=== PATIENT | female | born 1945 | race Caucasian/White ===

== ENCOUNTER 2017-05-01 14:59 | Inpatient (IN) ==
[2017-05-01] MEDS: LR 1,000 ML IV SCH (16:44)
[2017-05-01 17:47] LABS: INR 1.2; PROTIME 12.7 Seconds (9.2-11.7)
[2017-05-01 18:05] LABS: AMYLASE 40 U/L (20-200); LIPASE 23 U/L (13-60)
[2017-05-01 18:10] LABS: ALBUMIN 3.3 g/dL (3.5-5.0); CALCIUM 9.3 mg/dL (8.8-10.2); TOTAL BILIRUBIN 1.75 mg/dL (0.20-1.00); TOTAL PROTEIN 6.4 g/dL (6.3-8.3)
[2017-05-01 18:18] LABS: FREE T4 1.45 ng/dL (0.93-1.70)
[2017-05-01 18:20] LABS: HEMATOCRIT 33.1 % (37.0-47.0); HEMOGLOBIN 11.3 g/dL (12.0-16.0); MCH 32.6 PG (27-31); MCHC 34.1 g/dL (33-37); MCV 95.4 FL (81-99); MPV 10.9 FL (7.4-10.4); RBC 3.47 XMIL (4.2-5.4)
--- NOTE | 2017-05-01 18:23 | CONSULTATION ---
DATE OF CONSULTATION: 05/01/2017 HISTORY: She is from [facility]. I think she was followed there by Dr. Tong Valentine and Micah Ramos. She usually walks the [place] without assistance and is very active and requires very little assistance. Two weeks ago they noted she was staying in bed and seemed to be getting weaker to the point now where she cannot walk without assistance. They noted she has had for 4 or 5 falls in the last couple weeks. It seems to be when she is turning right. She claims that her balance is poor and she is bumping into domingo. She started having some abdominal pain. She pointed to her lower abdomen, but apparently she has been complaining of upper abdominal pain as well. Dr. Allison had evaluated her. I think he did an EGD by her report. She had Louise esophagitis and an old ulcer in the stomach. She feels like she has had chills every other day. There is no recorded fever. She denies any gross hematuria, hematochezia or burning, but she has had poor appetite and at times, apparently she has had nausea although she denies any at the present time. She had a mild elevation of transaminases. Apparently an ultrasound showed quite a few gallstones. PAST MEDICAL HISTORY: 1. One bipolar disorder for which she is on lithium and no recent change in medications. 2. Hypertension. 3. High cholesterol. 4. Primary hypothyroidism currently on Synthroid. 5. Osteoarthritis. 6. Had an EGD per Dr. Allison. Apparently had a fungal esophagitis and an old gastric ulcer. 7. History of pernicious anemia. Apparently, she gets B12 shots. 8. Lower back pain, which I think has been chronic, but she has had several falls and apparently seems to be worse since that time. 9. She has a history of depression. 10. History of osteoporosis. 11. History of anxiety disorder. 12. History of chronic obstructive pulmonary disease. 13. Unspecified lumbago with sciatica. 14. She has a long history of gastroesophageal reflux disease. PAST SURGICAL HISTORY: 1. She had a colon polyp removed. 2. delivery. 3. Status post hysterectomy. 4. They have done nasal septal surgery to straighten. 5. Bilateral total hip surgery. She has had some radicular pain before from lumbosacral region. No CVA. SOCIAL HISTORY: She smokes 1 cigarette a day. The daughter states that she usually gets out of bed to smoke that cigarette and she has not been doing that the last couple of weeks. No recent history of ethanol. 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 She lives at [facility]. Daughter very attentive. She lives in [place]. FAMILY HISTORY: Did not report a history of coronary artery disease or diabetes or any pertinent medical issues. REVIEW OF SYSTEMS: She claims she lost 15 pounds in 4 weeks. Daughter feels like she has lost 7 or 8 in a couple weeks, the last 2 weeks. She has no appetite. Not eating much at all. She denies any trouble with the food going down or swallowing. HEENT: No change in hearing or visual acuity. She does have a history of hypothyroidism. She denies any neck tenderness or swelling. Musculoskeletal: Lower back pain. She complains of when she turns to the right she has seems to have poor balance, but in general poor balance, ataxia and weakness. She fell 4 or 5 times since Monday. This is on Monday. GI and : The abdominal pain as mentioned. Apparently it was high. She pointed to the epigastrium, but she is complaining of lower abdominal pain. Feels like it is more gas and pressure at this time. The history is difficult because she admits she does not remember and is having a hard time remembering even recent events. Skin: No complaints of rashes. Endocrinologic and hematologic: History of hypothyroidism. Waiting on her medication list. She has had some radicular pain before from her lumbosacral region. PHYSICAL EXAMINATION: Vital signs: Temp 98 degrees, pulse 90, respirations 16, blood pressure 112/54. Weight is 129 pounds, height 5 feet 5 inches. O2 saturation 98%. She is awake and alert. She is pleasant. She reports she is having trouble with her memory, her particular recent memory the last couple weeks. Her daughter did state she seems to be more confused and she is having hallucinations. HEENT: Pupils are equal. Neck: CVP less than 6 cm. Neck is supple. There is no sign of thyromegaly of thyroid nodules. Carotid, radial, femoral pulses 2+ and symmetrical. Abdomen: Soft, nontender. No organomegaly appreciated. Cardiovascular: Regular rhythm and rate without murmur or S3. PMI nondisplaced. Skin: Warm and dry. Extremities: Without edema. No sign of cyanosis. Neurologically: She appears intact. Motor strength appears to be symmetrical. No complaints of sensory loss. The dizziness she describes is not consistent with vertigo. LABS: Pending. We do have labs from the and chemistry, and everything is unremarkable except AST was 48, mildly elevated, ALT was 17. C-reactive protein was unremarkable at 0.58. Albumin was low at 3.0. Cholesterol profile unremarkable. Her B12 was 759, folate was 11.5, her vitamin D was 73, T4 and TSH were normal. Hemoglobin A1c was 5.3. Sodium 137, potassium 4.5, chloride 100, bicarb 26, BUN 16, creatinine 0.9, blood sugar 79. ASSESSMENT AND PLAN: 1. Apparently loss of appetite and accompanying that some abdominal pain. They did find an old gastric ulcer. She does apparently have fungal esophagitis and some gallbladder stones. There is a question whether she has a symptomatic gallbladder and that is possible. The lab is unrevealing. We will check some more labs. We will note that her calcium is normal. We will check a cortisol level. We will check serum protein electrophoresis. We will check amylase and lipase. We will continue proton pump inhibitor and maybe add Carafate to the regimen depending on what Dr. Allison felt about the ulcer. 2. General weakness, falling and loss of balance. We probably need to scan her head and start with a CT without contrast and make sure there is no intracranial, subdural or epidural hematoma and then consider an MRI because apparently there is a definite change in her strength and her balance. 3. Altered mental status, metabolic encephalopathy. Having some visual hallucinations. She has underlying bipolar. We will continue her present medications. 4. I do not see any sign of significant hepatic irritation based on previous lab, but will check liver enzymes again. Will check an ammonia level with it. Will recheck the C-reactive protein and sedimentation rate. 5. Long history of gastroesophageal reflux apparently. 6. History of depression and anxiety. Aware. 7. History of lumbago or lower back pain seems to be worse. I think we are going to have to x- ray her lower back and also her pelvis and hips, and make sure nothing has changed because apparently she is having trouble walking now. We will get another chest x-ray. She has a history of chronic obstructive pulmonary disease. cc: Efrain Addison MD
[2017-05-01] MEDS: SODIUM CHLORIDE 0.9% INJ SCH (18:44)
[2017-05-01] MEDS: PROTONIX IV SCH (18:44)
--- NOTE | 2017-05-01 19:29 | Diag Imaging Result Doc PS360 ---
EXAM: LUMBAR SPINE 2-VIEWS INDICATION: lower back pain TECHNIQUE: 2 views COMPARISON: None. FINDINGS: There is extensive multilevel degenerative disc disease throughout the lumbar spine with loss of disc space height and marginal osteophyte formation. It affects essentially every lumbar level. There is associated scoliosis of the lumbar spine. The vertebral body heights are maintained. There is no evidence of fracture or intrinsic osseous lesion, otherwise. There is aortic atherosclerotic calcification. Surrounding soft tissues are essentially unremarkable, otherwise. IMPRESSION: Multilevel degenerative arthropathy as described. Electronically signed by Alexandr Mann 05/01/2017 7:27 PM
--- NOTE | 2017-05-01 19:30 | Diag Imaging Result Doc PS360 ---
EXAM: CHEST-2 VIEWS INDICATION: hypoxia TECHNIQUE: 2 views COMPARISON: None. FINDINGS: Inspiration is suboptimal. The lungs are grossly clear. There is no discrete pleural fluid collection or pneumothorax. The cardiomediastinal silhouette and central vasculature are grossly unremarkable. IMPRESSION: No evidence of acute pathology by plain radiograph. Electronically signed by Alexandr Mann 05/01/2017 7:27 PM
--- NOTE | 2017-05-01 19:45 | Diag Imaging Result Doc PS360 ---
EXAM: XRAY HIP W/PELVIS BILAT 3-4VWS INDICATION: lower back pain TECHNIQUE: 5 views COMPARISON: None. FINDINGS: There have been bilateral hip arthroplasties. The arthroplasty hardware is in the expected position. There is no radiographic evidence of significant hardware loosening. There is no definite acute fracture, dislocation, or intrinsic osseous lesion, otherwise. There are degenerative changes involving the lower lumbar spine. IMPRESSION: No evidence of acute osseous abnormality. Electronically signed by Alexandr Mann 05/01/2017 7:43 PM
--- NOTE | 2017-05-01 21:21 | Diag Imaging Result Doc PS360 ---
EXAM: CT HEAD W/O CONTRAST TECHNIQUE: Dose reduction protocol was used. INDICATION: ataxia COMPARISON: None. FINDINGS: There is mild patchy low attenuation in the periventricular and subcortical white matter suggesting mild microangiopathy. There is mild diffuse brain atrophy. There is no definite acute infarct given the limited sensitivity of CT versus MRI. There is no discrete intracranial mass, mass effect, or intracranial hemorrhage. The surrounding soft tissues and bony structures are essentially unremarkable. IMPRESSION: Suggestion of mild white matter microangiopathy but no definite acute intracranial pathology. Electronically signed by Alexandr Mann 05/01/2017 9:18 PM
[2017-05-01 23:35] LABS: URINE MICRO REVIEW NEEDED? NO; URINE SOURCE VOIDED
[2017-05-02 00:07] LABS: BILIRUBIN URINE NEGATIVE (NEGATIVE); BLOOD URINE NEGATIVE (NEGATIVE); COLOR YELLOW; GLUCOSE URINE NEGATIVE (NEGATIVE); LEUKOCYTES URINE NEGATIVE (NEGATIVE); NITRITE URINE NEGATIVE (NEGATIVE); PH URINE 6.5; PROTEIN URINE NEGATIVE (NEGATIVE); SP GRAVITY URINE 1.005; TURBIDITY URINE CLEAR (CLEAR); UR EPITHELIAL CELLS <10 /HPF (<10); URINE BACTERIA NEGATIVE /HPF; URINE RBC <10 /HPF (<10); URINE WBC <10 /HPF (<10); UROBILINOGEN URINE 2 mg/dL (NORMAL)
[2017-05-02] MEDS ORDERED: ATIVAN PO ONE (01:07)
[2017-05-02] MEDS ORDERED: SEROQUEL PO ONE (01:07)
[2017-05-02] MEDS: LR 1,000 ML IV SCH ×3 (01:54→22:21)
[2017-05-02] MEDS ORDERED: MORPHINE IV ONE (06:03)
[2017-05-02 07:18] LABS: HEMOGLOBIN 11.5 g/dL (12.0-16.0); MCH 32.6 PG (27-31); MCHC 33.8 g/dL (33-37); MCV 96.3 FL (81-99); MPV 10.6 FL (7.4-10.4); RBC 3.53 XMIL (4.2-5.4)
[2017-05-02 07:51] LABS: AGAP 12; BUN 17 mg/dL (8-22); CALCIUM 9.3 mg/dL (8.8-10.2); CHLORIDE 104 mmol/L (98-107); COSMO 282; HDL 8 mg/dL (45-65); LDL 68 mg/dL; SODIUM 141 mmol/L (136-145); TCO2 25 mmol/L (25-35); TRIGLYCERIDES 286 mg/dL (35-135); VLDL 57 mg/dL
--- NOTE | 2017-05-02 07:54 | Diag Imaging Result Doc PS360 ---
EXAM: CT ABD/PELVIS W/ IV CONT ONLY HISTORY: right upper quadrant and epigastric pain TECHNIQUE: CT abdomen and pelvis with intravenous contrast. Dose reduction protocol. COMPARISON: None. FINDINGS: The gallbladder is overly distended and there are several stones within it. There is intra and extrahepatic biliary ductal dilatation. The common bile duct is dilated up to 1.4 cm. No calcified stones with in it. No other hepatic abnormality. Normal spleen, pancreas, and adrenal glands. There are bilateral nonobstructing renal stones. No hydronephrosis severe atherosclerosis. No aneurysmal dilatation to the aorta. No bowel obstruction. Normal appendix. No abscess. There is a large amount of metallic artifact in the pelvis from bilateral hip prostheses. The urinary bladder is mildly distended. Mild scoliosis with degenerative spine changes. IMPRESSION: 1.Cholelithiasis with a distended gallbladder with intra and extrahepatic biliary ductal dilatation 2.Bilateral nonobstructing renal stones 3.Severe atherosclerosis 4.Mild scoliosis with prominent degenerative spine changes 5.Mild constipation Electronically signed by Alfonzo Granados 05/02/2017 7:52 AM
--- NOTE | 2017-05-02 07:55 | PROGRESS NOTE ---
DATE: 05/02/2017 SUBJECTIVE: Patient still somewhat altered. Daughter in the room saying that she has been altered through most of the night. She intermittently complains of abdominal pain, although she does not have significant abdominal pain on palpation. She had a CT of her head done that showed no acute pathology. OBJECTIVE: Vital Signs: Patient is currently afebrile. Her vital signs are stable. General Examination: No acute distress. HEENT: Normocephalic, atraumatic. Pupils equal, round, and reactive to light. Mucous membranes moist. Oropharynx benign. Less jaundice noted to her sclerae. Neck: Supple. Trachea midline. Cardiovascular: Regular rate and rhythm. Lungs: Grossly clear. Abdomen: Soft, mildly distended. Very vague tenderness to palpation in the right upper quadrant, epigastric. No peritoneal signs. Negative Denise's sign. Extremities: Moves all extremities. Skin: No signs of jaundice at this time. Vascular: All extremities perfused. Laboratory: Reviewed from yesterday. C-reactive protein is elevated at 90.1. Bilirubin is elevated at 1.75. AST is slightly elevated. Alkaline phosphatase is normal. ASSESSMENT AND PLAN: A 72-year-old, female with altered mental status, multiple medical comorbidities, and abdominal pain. 1. Abdominal pain. At this time, I did an EGD which showed a healing gastric ulcer. She has a slight elevation in her bilirubin, although it is essentially stable from her labs drawn on the . Her alkaline phosphatase is normal. She had a slight elevation in her AST. I am unsure of the clinical significance of her elevated bilirubin. She did have an ultrasound done previously that showed gallstones, although she is not presenting like the classic cholelithiasis, although I cannot rule out choledocholithiasis. She does not have a leukocytosis to suggest cholangitis but she does have some altered mental status. She does not have any hypotension. Given these vague symptoms, I will order a CT scan with intravenous contrast only. I will see what it shows. 2. Altered mental status. At this time, a CT scan of her head is normal without acute changes. She does have some chronic changes but again no acute stroke appreciated. I wonder if some of this might be related to her multiple medications that she is taking. She did potentially have a subtle stroke after her last anesthesia but again, there are no signs of acute pathology on CT scan. 3. Multiple medical comorbidities, currently being managed by the hospitalist service. 4. Urinary tract infection. She was started on antibiotics at her snf. Her urinalysis here does not appear to be suggestive of a urinary tract infection. She does have bilirubin in her urine. I appreciate the hospitalist's input. We will get the CT scan to see if there is any acute abdominal pathology, although I am unsure if she will tolerate any major operation given her decline after just an EGD with MAC anesthesia. We will continue to follow. cc: Wilman Allison MD
[2017-05-02] MEDS: NORCO-7.5 PO SCH (10:25)
[2017-05-02 13:12] LABS: HEPATITIS PROFILE ACUTE SEE COMMENTS
[2017-05-02] MEDS ORDERED: LR 1,000 ML ONE (14:23)
[2017-05-02] MEDS ORDERED: SENSORCAINE 0.5%-EPI 1:200,000 ONE (14:23)
[2017-05-02] MEDS ORDERED: SODIUM CHLORIDE 0.9% ONE (14:23)
[2017-05-02] MEDS ORDERED: DIPRIVAN 1% ONE (14:42)
[2017-05-02] MEDS ORDERED: XYLOCAINE-MPF 2% ONE (14:43)
[2017-05-02] MEDS ORDERED: QUELICIN (DOSE) ONE (14:43)
[2017-05-02] MEDS ORDERED: ROBINUL ONE ×2 (14:43→15:22)
[2017-05-02] MEDS: ZOSYN 3.375 GM in NS 50 ML IV SCH ×3 (14:45→22:20)
[2017-05-02] MEDS ORDERED: TORADOL ONE (15:00)
[2017-05-02] MEDS ORDERED: OFIRMEV 1000 MG/ISOTONIC SOLN 1,000 MG/100 ML BOTTLE ONE (15:00)
[2017-05-02] MEDS ORDERED: ZEMURON ONE (15:14)
[2017-05-02] MEDS ORDERED: NEOSTIGMINE ONE (15:22)
--- NOTE | 2017-05-02 15:36 | PROGRESS NOTE ---
DATE: 05/01/2017 SUBJECTIVE: Today Ms. Conway refers to continuing to be hurting, especially in the abdomen. She was more concerned of when the surgery is going to be done. OBJECTIVE: Vital signs: Blood pressure is 112/54, pulse of 91, respirations 16, temperature is 98, degrees, patient is saturating 98% on room air. General: Ms. Conway is a 72-year-old female. She is in bed, in mild painful distress. HEENT: Mucosa is dry, anicteric and acyanotic. Neck: Supple. Chest: Clear. Cardiovascular: Regular rate and rhythm. Abdomen: Soft, exclusively tender in the right upper quadrant. Bowel sounds are present. No hepatosplenomegaly. Extremities: No pedal edema. SHOP FITTER: Patient is awake and alert and oriented. There is no focal neurological deficit. DIAGNOSTICS: A review of the CT scan of the abdomen shows: Cholelithiasis with a distended gallbladder with intra- and extrahepatic biliary duct dilatation. Bilateral nonobstructing renal stones. Severe atherosclerosis. Mild constipation. LABORATORY DATA: Reviewed. Chemistry is completely unremarkable and the CBC is also unremarkable. The patient had a folate of 7.9 on the previous laboratory work day before, as well as the magnesium of 1.4. ASSESSMENT: 1. Abdominal pain secondary to cholelithiasis with intra- and extrahepatic duct dilatation. Patient is hurting. I suspect there is an acute cholecystitis to the picture. We are going to put the patient on IV antibiotics for now, continue with the hydration and adequate pain control. The patient is pending surgery today. 2. Vitamin and folate deficiency likely due to nutritional deficiencies. We will replace these. 3. Clinical dehydration. Patient will continue with the IV fluids. 4. Hepatitis C antibody positive. We will order the PCR and the genotype. 5. Bilateral nonobstructing renal stones. We will continue adequate hydration for this. cc: Bam Adame MD
--- NOTE | 2017-05-02 15:57 | Diag Imaging Result Doc PS360 ---
EXAM: OPERATIVE CHOLANGIOGRAM HISTORY: GB DISEASE TECHNIQUE: Single view COMPARISON: None. FINDINGS: The single view shows contrast filling a distended common bile duct. There appears to be a filling defect distally. Contrast has not emptying into the duodenum. IMPRESSION: Abnormal exam with a distended common bile duct with an apparent filling defect distally. Electronically signed by Alfonzo Granados 05/02/2017 3:55 PM
--- NOTE | 2017-05-02 16:50 | OPERATIVE NOTE ---
PROCEDURE DATE: 05/02/2017 PREOPERATIVE DIAGNOSIS: Common bile duct obstruction. POSTOP DIAGNOSIS: Common bile duct obstruction. PROCEDURE: Laparoscopic cholecystectomy with cholangiogram. SURGEON: Wilman Allison MD. IRISH MOSS GATHERER: None. ANESTHESIA: General endotracheal. FINDINGS: Distal common bile duct stone, dilated common bile duct, dilated gallbladder. COMPLICATIONS: None at time of dictation. ESTIMATED BLOOD LOSS: 10 mL. SPECIMENS REMOVED: Gallbladder. DRAINS: 19-Greenlandic. BRIEF HISTORY: The patient is a 72-year-old female with altered mental status who came in with vague history abdominal pain. I had previously done EGD that showed a healing gastric ulcer. Her symptoms were classic for gallbladder disease but we got a CT scan given mildly elevated bilirubin that showed a dilated common bile duct and dilated gallbladder. Is felt the patient benefit from a cholecystectomy with cholangiogram. The risks, benefits, alternatives were discussed. All questions answered. Description. PROCEDURE: After informed consent was obtained, patient brought to operative theatre, transferred operative table, placed supine position. General endotracheal anesthesia was then performed without complication. A formal time-out was then performed confirming patient, date, procedure. All were in agreement. At that time attention given abdomen. Abdomen is prepped, draped sterile fashion. After a formal time-out we made infraumbilical incision through which using Optiview technique were able insert trocar connect insufflation. Pneumoperitoneum was achieved. Under direct visualization placed 3 more trocars all 5 mm, 1 subxiphoid, 2 in the right upper quadrant. Using these gallbladder was identified. It was very distended. We had suction out some of the bile to be able to grasp it. Once we were able to do this we grasped and elevated it cephalad. We then able to dissect out the cystic duct and cystic artery. There was enlarged Calot node. We achieved a critical view of safety. We clipped the cystic duct on the gallbladder side, made a ductotomy, performed a cholangiogram which the details are showed above with a dilated common bile duct with the distal common bile duct filling defect suggestive of a stone. We then doubly clipped and ligated cystic duct and cystic artery then dissected the gallbladder off the gallbladder fossa, placed it into an endobag and brought it out through the infraumbilical incision. Given the distention the cystic duct and the common bile duct we left a 19-Greenlandic drain tunneled from most lateral trocar site. We secured it in place in the standard fashion. We then turned our attention to removing all trocars after we closed the infraumbilical defect with Gilmer-Ovidio device with 0 Vicryl with good results. We then closed all trocar sites with 4-0 Monocryl. The patient tolerated procedure well, transferred recovery room in stable condition. I did consult Dr. Munroe for an ERCP. cc: Wilman Allison MD
[2017-05-02] MEDS: PROTONIX IV SCH (17:52)
[2017-05-02] MEDS: SODIUM CHLORIDE 0.9% INJ SCH (17:52)
--- NOTE | 2017-05-02 19:35 | CONSULTATION ---
DATE OF CONSULTATION: 05/02/2017 REQUESTING PHYSICIAN: Dr. Allison. REASON FOR CONSULT: Choledocholithiasis. HISTORY: This is a 72-year-old white female, a resident of [facility] was admitted to hospital with abdominal pain and abnormal CT scan suggestive of cholelithiasis and dilated intra and extrahepatic ducts. She underwent laparoscopic cholecystectomy today by Dr. Allison and intraoperative cholangiogram revealed filling defects in the distal common bile duct. Consult was obtained for ERCP for therapeutic purposes. The patient is resting comfortably today. She was complaining of inability to urinate and some lower abdominal discomfort. Otherwise denies any heartburn, reflux symptoms. She denies any other abdominal pain except for some soreness at the incision sites. She has tolerated clear liquids well and she is resting comfortably. PAST MEDICAL HISTORY: Significant for gastroesophageal reflux disease, hypertension, hyperlipidemia, COPD, osteoporosis, anxiety disorder, bipolar disorder, hypothyroidism. SURGERY: She has had cholecystectomy today, , hysterectomy and surgery for DNS, she has bilateral total hip surgery. MEDICATION: Prior to hospitalization she has been on Abilify, allopurinol, Ativan, Benadryl, vitamin B12, Diflucan, fenofibrate, fluticasone, Levaquin, levothyroxine, lisinopril, Mag Ox, melatonin, Norvasc, Nexium, hydrocodone with acetaminophen, Robaxin, Remeron, Seroquel, Tylenol, Tums, Wellbutrin and vitamin D3. ALLERGIES: Claims to be allergic to lithium and sulfa medication. SOCIAL HISTORY: She is a and lives at the [facility]. Does not smoke. Does not drink, does not illicit drugs. FAMILY HISTORY: Noncontributory. REVIEW OF SYSTEMS: As per HPI as above. PHYSICAL EXAM: General: On examination very pleasant white female. She is lying in bed conscious, alert, appears to be no distress. Vitals: Temperature 99.7 degree Fahrenheit, pulse was 87 per minute, breathing 20, blood pressure was 121/62. HEENT: Conjunctiva is normal. Sclerae anicteric. Nares are patent. No discharge noted. Mouth. Buccal mucosa is moist. Throat is normal. Neck: Supple. No lymphadenopathy or thyromegaly. Chest: Clear to auscultate heart sounds. No murmur. Abdomen: Is postsurgical, appropriate tender but she has significant tenderness in the suprapubic area. Bladder was palpable. No other mass or visceromegaly noted. Bowel sounds are audible although sluggish. Extremities: No pedal edema, cyanosis, clubbing was noted. LABS: Reviewed which showed WBC of 5.46, hemoglobin 11.5, hematocrit 34.0, MCV is 96.3, platelets were 259,000, sodium 141, potassium 4.0, chloride 104, bicarb 25, BUN is 17, creatinine 0.8. LFTs shows AST 38, ALT 18, total bilirubin is 1.75. Urinalysis was negative. Hepatitis profile was reactive to hepatitis C. IMAGING STUDIES: Intraoperative cholangiogram shows filling defect in the distal common bile duct suggestive of choledocholithiasis with dilated common bile duct. IMPRESSION: 1. Choledocholithiasis with intra and extrahepatic biliary duct dilation. 2. Status post cholecystectomy today. 3. Chronic hepatitis C. 4. Other medical problems as mentioned above. RECOMMENDATION: 1. Patient does need ERCP for stone extraction. I have explained my findings and plan to the patient and her daughter was present at bedside. Risks, benefits and alternatives were explained. Risks of but not limited to bleeding, perforation, aspiration, pneumonia and pancreatitis was explained. They understood and agreed to proceed. Patient will be scheduled for ERCP in the morning. 2. For hepatitis C may need to have further evaluation which may include viral genotype and viral load and as far as management further plans made after she overcomes this acute illness and I will see her back in the office and decide about that at that time. Rest of medical treatment as per team. cc: Robby Munroe MD
--- NOTE | 2017-05-02 20:38 | CONSULTATION ---
DATE OF CONSULTATION: 05/02/2017 CHIEF COMPLAINT: Low back pain. HISTORY OF PRESENT ILLNESS: This is a 72-year-old female, who is admitted and I was asked to see her for low back pain. She today has no complaints of low back pain. She complains of abdominal pain. Her bilateral lower extremities are not painful as well. PHYSICAL EXAMINATION: General appearance: Physical exam reveals a well-developed, well-nourished female. She is alert and cooperative to the exam. Back/extremities: She has no tenderness over her back. There is no step-off. Bilateral lower extremities are neurovascularly intact. X-RAYS: X-rays showed degenerative lumbar disk disease. IMPRESSION: Lumbar degenerative disk disease with a history of possible low back pain. PLAN: I think treating this conservatively and addressing other problems would be the most prudent manner. If she needs to be seen in the future for her back, we can happily see her, otherwise I will be available as needed. cc: Roger Amezcua MD
[2017-05-02 20:40] LABS: URINE CULTURE NEEDED? NO; URINE MICRO REVIEW NEEDED? NO; URINE SOURCE CATH
[2017-05-02 20:43] LABS: UR EPITHELIAL CELLS <10 /HPF (<10); URINE BACTERIA NEGATIVE /HPF; URINE RBC <10 /HPF (<10); URINE WBC <10 /HPF (<10)
[2017-05-02 20:44] LABS: BILIRUBIN URINE NEGATIVE (NEGATIVE); BLOOD URINE NEGATIVE (NEGATIVE); COLOR YELLOW; GLUCOSE URINE NEGATIVE (NEGATIVE); LEUKOCYTES URINE NEGATIVE (NEGATIVE); NITRITE URINE NEGATIVE (NEGATIVE); PROTEIN URINE NEGATIVE (NEGATIVE); SP GRAVITY URINE 1.017; TURBIDITY URINE CLEAR (CLEAR); UROBILINOGEN URINE NORMAL (NORMAL)
[2017-05-03] MEDS: ZOSYN 3.375 GM in NS 50 ML IV SCH ×4 (03:00→20:40)
[2017-05-03] MEDS: MORPHINE IV PRN ×6 (06:23→20:49)
[2017-05-03 07:06] LABS: MANUAL DIFF NEEDED? NO
[2017-05-03 07:19] LABS: BASO% 0.1 % (0.0-0.8); EOS# 0.01 X1000 (0.0-0.7); EOS% 0.1 % (0.0-10.0); HEMATOCRIT 31.1 % (37.0-47.0); HEMOGLOBIN 10.8 g/dL (12.0-16.0); IMM GRAN# 0.02 X1000 (0.0-0.04); IMM GRAN% 0.3 % (0.0-0.5); LYMPH# 1.01 X1000 (1.2-3.4); LYMPH% 14.6 % (20.5-51.1); MCH 33.1 PG (27-31); MCHC 34.7 g/dL (33-37); MCV 95.4 FL (81-99); MONO# 0.55 X1000 (0.11-0.59); MPV 10.9 FL (7.4-10.4); NEUT% 76.9 % (42.2-75.2); PLT 251 X1000 (130-400); RBC 3.26 XMIL (4.2-5.4)
--- NOTE | 2017-05-03 07:24 | PROGRESS NOTE ---
DATE: 05/03/2017 SUBJECTIVE: CT scan yesterday showed dilated biliary tree with dilated gallbladder. I took the patient to the operating room, and performed a laparoscopic cholecystectomy. At that time, I did a cholangiogram showed a filling defect of the distal common bile duct. GI has been consulted. The patient is doing okay right now. She did have a DIMITRI drain left in place. It did show serosanguineous output. OBJECTIVE: Vital Signs: Patient is currently afebrile. Her vital signs are stable. General: No acute distress. Resting comfortably in bed. Sleeping on her right side. Cardiovascular: Regular rate and rhythm. Lungs: Clear. Abdomen: Soft, appropriately tender. DIMITRI drain with serosanguineous output. LABORATORY: None this morning. ASSESSMENT AND PLAN: A 72-year-old female, status post laparoscopic cholecystectomy with common bile duct obstruction. 1. Common bile duct obstruction. At this time, patient has been scheduled for an ERCP later today by Dr. Munroe. We will follow up with the results. She does have a DIMITRI drain in place purely to prevent any kind of issues with drainage from the cystic duct. Overall, her clinical status is unchanged. She does not show signs of cholangitis. She is on antibiotics anyway. 2. Altered mental status persistent. She does have a CT scan that shows no acute changes. 3. Multiple medical comorbidities. Currently being managed by the hospitalist service. 4. Urinary tract infection. At this time, she is on antibiotics. Her most recent UA was essentially normal. So I suspect that she has probably been treated appropriately. cc: Wilman Allison MD
[2017-05-03 07:34] LABS: AGAP 12; ALBUMIN 2.7 g/dL (3.5-5.0); ALKALINE PHOSPHATASE 62 U/L (32-104); BUN 8 mg/dL (8-22); CALCIUM 8.8 mg/dL (8.8-10.2); CHLORIDE 101 mmol/L (98-107); COSMO 273; GOT 71 U/L (10-30); GPT 20 U/L (10-36); POTASSIUM 3.2 mmol/L (3.5-5.1); SODIUM 138 mmol/L (136-145); TCO2 25 mmol/L (25-35); TOTAL BILIRUBIN 5.48 mg/dL (0.20-1.00); TOTAL PROTEIN 5.7 g/dL (6.3-8.3)
[2017-05-03] MEDS: LR 1,000 ML IV SCH ×2 (08:27→18:32)
[2017-05-03] MEDS: NORCO-7.5 PO SCH (08:28)
[2017-05-03] MEDS: THERA M PLUS PO SCH (08:28)
[2017-05-03] MEDS ORDERED: DIPRIVAN 1% ONE (15:49)
--- NOTE | 2017-05-03 15:55 | PROGRESS NOTE ---
DATE: 05/03/2017 SUBJECTIVE: Today, Ms. Conway refers to be doing a whole lot better. She is awaiting her second procedure to be done. Of note, Ms. Conway had a laparoscopic cholecystectomy with cholangiogram and placement of a DIMITRI drain done yesterday by Dr. Allison. Today, she refers to be doing okay. Still complained of some abdominal pain. OBJECTIVE: Vital Signs: Her blood pressure is 136/67, pulse of 87, respiration is 17, temperature is 98.7 degrees. General: Ms. Li Conway is a 72-year-old female. She is in bed not in any distress. HEENT: Mucosa is slightly dry, 1+ icteric but no cyanosis. Cardiovascular: Regular rate and rhythm. There is no murmurs, no rubs, no gallops. Chest: Good air entry bilaterally. No accessory muscle use. No crepitations. No rhonchi. Abdomen is soft, minimally tender in the right upper quadrant. There is a DIMITRI drain which has some serosanguineous fluid in it. Bowel sounds are reduced. No hepatosplenomegaly. Extremities: No pedal edema. 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 There is no focal neurological deficit. LABORATORY WORK: WBC is 6.90, hemoglobin is 10.8, platelet count of 251,000. Chemistry is also reviewed. Potassium is 3.2, total bilirubin went up to 5.48 AST went up to 71. Vitamin D level is 58.3 which is normal. If intraoperative cholangiogram report shows abnormal exam with distended common bile duct with an apparent filling defect distally. ASSESSMENT: 1. Abdominal pain secondary to cholelithiasis with distal common bile duct obstruction. Patient is status post cholecystectomy. Intraoperative cholangiogram was remarkably abnormal and the gum machine filler has been consulted for endoscopic retrograde cholangiopancreatography, which is pending to be done today. 2. Vitamin and folate deficiency likely due to nutritional deficiencies. We are going to replace them. 3. Clinical dehydration will continue with the IV fluids. 4. Non- nonobstructing bilateral renal stones. Will continue to have adequate hydration. 5. Hepatitis C antibody positive. PCR and genotype have all been sent. We are pending results. In terms of disposition, the patient is from [facility]. I think once her medical condition becomes more stable, we will be able to discharge her back to the retirement. cc: Bam Adame MD MTDD
[2017-05-03] MEDS ORDERED: GLUCAGON ONE ×2 (17:15→17:31)
[2017-05-03] MEDS ORDERED: INDOCIN ONE (17:16)
[2017-05-03] MEDS: PROTONIX IV SCH (18:32)
[2017-05-03] MEDS: SODIUM CHLORIDE 0.9% INJ SCH (18:32)
--- NOTE | 2017-05-03 19:35 | Diag Imaging Result Doc PS360 ---
ERCP-BILIARY AND PANCREATIC - 05/03/2017 INDICATION: abnormal cholangiogram, ?cbd stone TECHNIQUE: The exam was performed by the patient's endoscopist. Three views were submitted. COMPARISON: Cholangiogram from 05/02/2017 FINDINGS: The common bile duct is very distended. There is an apparent filling defect at the distal most common bile duct which is very irregular in appearance. There was probably a balloon sweep performed. No obvious stent placement. IMPRESSION: Indeterminate obstructing object at the distal most common bile duct. Electronically signed by Ru Lopez 05/03/2017 7:32 PM
[2017-05-04] MEDS: MORPHINE IV PRN ×3 (01:55→13:42)
[2017-05-04] MEDS: ZOSYN 3.375 GM in NS 50 ML IV SCH ×2 (02:49→09:00)
[2017-05-04] MEDS: LR 1,000 ML IV SCH (06:46)
--- NOTE | 2017-05-04 06:49 | OPERATIVE NOTE ---
PROCEDURE DATE: 05/03/2017 PROCEDURES PERFORMED: Endoscopic retrograde cholangiopancreatography, sphincterotomy, stone extraction. MEDICATIONS: MAC as per Anesthesia. SCOPE USED: Olympus duodenoscope. HISTORY: This is a 72-year-old female who was admitted to the hospital with abdominal pain. Underwent cholecystectomy for symptomatic biliary colic. During intraoperative cholangiogram, she was found to have a filling defect in the distal common bile duct. ERCP was done for therapeutic purposes. DESCRIPTION OF PROCEDURE: Informed consent was obtained from the patient as well as her daughter. Procedure, risks, benefits, and alternatives were explained in layman's terms. She understood. All their pertinent questions were answered. The patient was brought to the endoscopy unit and was premedicated as per Anesthesia. After adequate sedation, while she was lying in the left lateral position, the duodenoscope was introduced into the posterior pharynx and advanced manually into the esophagus. Through the esophagus, it was advanced to the stomach. Stomach was insufflated. Pylorus was identified. The scope was then passed through the pylorus, into the duodenal bulb, and then to the 2nd part of the duodenum. The major papilla was noted which was slightly boggy. There was a small diverticula seen superior to the ampulla. Using the sphincterotome, first the pancreatic duct was cannulated and contrast injected. Pancreatogram obtained, did not reveal any pathology. Then the common bile duct was cannulated. After deep cannulation, contrast was injected. Cholangiogram obtained which revealed a filling defect in the distal common bile duct. The common bile duct was slightly dilated up to 1 cm in diameter. The filling defect appeared to be 8 mm in size. The intrahepatic biliary system appeared to be normal size. There appeared to be clips at the cystic duct, suggestive of recent cholecystectomy. At this point, I went ahead and proceeded with sphincterotomy. After adequate sphincterotomy, I used a stone extraction balloon and removed the stone without any difficulty. The stone appeared to be yellowish in color with dark green outer covering. It was about 8 mm in largest diameter and oblong in shape. After the stone was removed, occlusion cholangiogram was obtained which did not reveal any further filling defects. However, I went and swiped the common bile duct a few more times. The contrast was flowing nicely. The scope was then removed. Patient tolerated the procedure well. No complications noted. Patient was then transferred to the recovery area in a stable condition. IMPRESSION: 1. Choledocholithiasis, sphincterotomy done, stone removed. 2. Diverticula in the 2nd portion of the duodenum. RECOMMENDATION: The patient will be started on clear liquid diet and continue symptomatic treatment. Once stabilized and ready to be discharged, she can be discharged and follow up with me as needed. cc: MD Wilman Alejandre MD MTDD
[2017-05-04 07:04] LABS: HEMATOCRIT 32.7 % (37.0-47.0); HEMOGLOBIN 11.4 g/dL (12.0-16.0); MCH 33.7 PG (27-31); MCHC 34.9 g/dL (33-37); MCV 96.7 FL (81-99); MPV 10.6 FL (7.4-10.4); RBC 3.38 XMIL (4.2-5.4)
[2017-05-04 07:27] LABS: AGAP 12; BUN 7 mg/dL (8-22); CHLORIDE 99 mmol/L (98-107); COSMO 267; POTASSIUM 3.2 mmol/L (3.5-5.1); SODIUM 135 mmol/L (136-145); TCO2 24 mmol/L (25-35)
[2017-05-04 08:06] VITALS: BP 123/58
--- NOTE | 2017-05-04 08:28 | PROGRESS NOTE ---
DATE: 05/04/2017 SUBJECTIVE: The patient underwent ERCP and had a stone extraction. She seems to be doing okay. Her DIMITRI is in place. The output has not recorded but looks serosanguineous. She seems to be doing fine. OBJECTIVE: Vital Signs: Patient is currently afebrile. Her vital signs are stable. General Examination: No acute distress. Resting comfortably. Cardiovascular: Regular rate and rhythm. Lungs: Essentially clear. Abdomen: Soft. Appropriately tender. DIMITRI drain in place with serosanguineous output. Laboratory: Reviewed from yesterday. Bilirubin yesterday was 5. ASSESSMENT/PLAN: A 72-year-old, female, status post laparoscopic cholecystectomy with common bile duct obstruction, status post ERCP with sphincterotomy and stone extraction. 1. Common bile duct obstruction. At this time, she is status post ERCP with stone extraction. She seems to be doing okay. I think from a surgical point of view, she could likely be discharged home. I would like to keep her drain in place for right now just given the distention of the common bile duct. Clinically, she shows no signs of cholangitis. 2. Altered mental status. At this time, CT scan shows no acute change. 3. Multiple medical comorbidities. Currently being managed by the hospitalist service. cc: Wilman Allison MD
[2017-05-04] MEDS: THERA M PLUS PO SCH (08:59)
[2017-05-04] MEDS: NORCO-7.5 PO SCH (08:59)
[2017-05-04 13:36] LABS: HCV BY PCR SEE COMMENTS; HCV CHARGE YES
--- NOTE | 2017-05-04 14:19 | DISCHARGE SUMMARY ---
ADMISSION DATE: 05/01/2017 DISCHARGE DATE: 05/04/2017 PROCEDURES: 1. Hip x-ray showed no evidence of acute osseous abnormality. 2. Lumbar spine showed multi degenerative arthropathy. 3. Abdomen and pelvis CT showed cholelithiasis with distended gallbladder with intra- and extrahepatic biliary ductal dilatation, bilateral nonobstructing renal stones , severe atherosclerosis, mild sclerosis with prominent degenerative spine changes, constipation. 4. Laparoscopic cholecystectomy with cholangiogram performed by Dr. Wilman Allison. 5. ERCP with stone extraction performed by Dr. Robby Murnoe. DISCHARGE DIAGNOSES: 1. Abdominal pain secondary to cholelithiasis, distal common bile duct obstruction, status post cholecystectomy and endoscopic retrograde cholangiopancreatography (ERCP). 2. Thiamine and folate deficiency secondary to nutritional deficiencies. Continue with supplementation. 3. Clinical dehydration. Resolved after intravenous fluids. 4. Nonobstructive bilateral renal stones, aware. 5. Hepatitis C antibody positive, PRC and genotype have all been sent. Pending results. 6. Metabolic encephalopathy. The patient does have underlying bipolar. She was having some visual hallucinations. Those have resolved. 7. Gastroesophageal reflux disease, (GERD). Continue with proton pump inhibitor , (PPI). 8. Depression and anxiety history, aware. DISPOSITION: Discharged back to rehab. Followup with Dr. Allison. HOSPITAL COURSE: The patient is a 72-year-old female who is a resident of [facility]. She has a past medical history of bipolar, on lithium, hypertension, high cholesterol, hypothyroidism, osteoarthritis, depression, anxiety, COPD, GERD. Per the [facility] she usually walks the halls without assistance and is very active and requires very little assistance. Two weeks ago they noticed she was staying in bed and seemed to be getting weaker, to the point where she could not walk without assistance. She had four to five falls in the last couple of weeks. She felt like she had poor balance and was bumping into [place]. She started having some abdominal pain and pointing to her lower abdomen, as well as upper abdominal pain. She was evaluated by Dr. Allison, and at one point had an EGD and she had krista esophagitis and an ulcer in the stomach. Laboratory data was largely unremarkable except AST was 48, mildly elevated, and ALT at 17, and a low albumin at 3. Her bilirubin was elevated at 1.75. The alkaline phosphatase was normal. The C-reactive protein was elevated at 90.1. The head CT was normal without any acute changes. The CT of the abdomen and pelvis was performed that showed cholelithiasis with distended gallbladder with intra- and extrahepatic biliary ductal dilatation, bilateral nonobstructive renal stones, severe atherosclerosis, mild sclerosis with prominent degenerative spine changes , and mild constipation. She underwent a laparoscopic cholecystectomy with Dr. Allison. She did have cholelithiasis with intra- and extrahepatic biliary duct dilatation for which Dr. Munroe was consulted. She did undergo an ERCP with stone extraction with Dr. Munroe. She was continued on a clear-liquid diet as well as symptomatic treatment. She has been advanced to a full-liquid diet. She is tolerating that well. Dr. Adame feels she is appropriate to be discharged back to [facility] today. VITAL SIGNS: Temperature 99.1, heart rate 84, respirations 20, blood pressure 123/58. O2 98% on room air. DISCHARGE DIET: Full liquid, advance slowly as tolerated. DISCHARGE MEDICATIONS: As per Dr. Adame. Please see MAR. FOLLOWUP: The patient is being discharged back to [facility]. She will follow up with Dr. Allison in one week to evaluate the DIMITRI drain and she will follow up with Dr. Munroe. She will return to the ED for any worsening of symptoms. Continue with aggressive pulmonary toilet , turn, cough, deep breathe. Up, out of bed t.i.d. for all meals. Up in the [place] walking with assistance. Dictated by ALONDRA Majano for Bam Adame MD cc: Bam Adame MD Time spent for Discharge 36 minutes. MTDD
--- NOTE | 2017-05-04 17:58 | PROGRESS NOTE ---
DATE: 05/04/2017 SUBJECTIVE: Patient was resting comfortably and her daughter was present at the bedside. She reported that she was feeling much better. Did not have any GI complaints. She had just finished her breakfast and was doing well and tolerated breakfast well. OBJECTIVE: Vitals: Temperature was 99.1, pulse is 84 per minute, breathing 20, blood pressure 122/58. Abdomen: Was appropriately tender mildly at the incision site. Otherwise soft, nontender. Bowel sounds are audible. LABS: Sodium 135, potassium 3.2, chloride 99, bicarb is 24, BUN 7, creatinine 0.5. IMPRESSION: Choledocholithiasis, status post cholecystectomy. She underwent ERCP yesterday. The stone was removed after sphincterotomy. She has done well since procedure and has not had any gastrointestinal symptoms. PLAN: Patient is scheduled to be discharged today. Advised her to follow up with me as needed. Follow up with Dr. Allison and primary care as scheduled. I have explained the findings and plan to the patient as well as the daughter who was present at bedside. They understood. All the pertinent questions answered. cc: Robby Munroe MD
[2017-05-04] MEDS ORDERED: AUGMENTIN PO SCH (21:00)
[2017-05-04 21:56] LABS: HEPATITIS C GENOTYPE SEE COMMENTS
== END 2017-05-04 14:30 ==
LOC: DIRADM 14:59 → SUATTDRO 14:59 → 3N 15:35
PROVIDERS: ATTEND Internal Medicine

== ENCOUNTER 2018-10-22 10:24 | Inpatient (IN) ==
[2018-10-22] MEDS ORDERED: NS 1,000 ML IV ONE (10:38)
[2018-10-22 11:34] LABS: URINE SOURCE CATH
[2018-10-22 11:35] LABS: INR 0.95; PROTIME 13.4 Seconds (11.0-16.0)
[2018-10-22 11:46] LABS: BASO# 0.05 X1000 (0.0-0.2); BASO% 0.6 % (0.0-0.8); EOS# 0.36 X1000 (0.0-0.7); EOS% 4.4 % (0.0-10.0); HEMATOCRIT 44.9 % (37.0-47.0); HEMOGLOBIN 14.7 g/dL (12.0-16.0); IMM GRAN# 0.03 X1000 (0.0-0.04); IMM GRAN% 0.4 % (0.0-0.5); LYMPH# 1.96 X1000 (1.2-3.4); MCH 30.9 PG (27-31); MCHC 32.7 g/dL (33-37); MCV 94.5 FL (81-99); MONO# 0.86 X1000 (0.11-0.59); MONO% 10.5 % (1.7-9.3); MPV 10.2 FL (7.4-10.4); NEUT# 4.91 X1000 (1.4-6.5); NEUT% 60.1 % (42.2-75.2); PLT 164 X1000 (130-400); RBC 4.75 XMIL (4.2-5.4); RDW 12.7 % (11.5-14.5); WBC 8.17 X1000 (4.8-10.8)
[2018-10-22 11:47] LABS: BILIRUBIN URINE NEGATIVE (NEGATIVE); BLOOD URINE NEGATIVE (NEGATIVE); COLOR YELLOW; GLUCOSE URINE NEGATIVE (NEGATIVE); KETONE URINE NEGATIVE (NEGATIVE); LEUKOCYTES URINE NEGATIVE (NEGATIVE); NITRITE URINE NEGATIVE (NEGATIVE); PROTEIN URINE NEGATIVE (NEGATIVE); SP GRAVITY URINE 1.006; TURBIDITY URINE CLEAR (CLEAR); UR EPITHELIAL CELLS <10 /HPF (<10); URINE BACTERIA NEGATIVE /HPF; URINE RBC <10 /HPF (<10); URINE WBC <10 /HPF (<10); UROBILINOGEN URINE NORMAL (NORMAL)
[2018-10-22 11:48] LABS: ALLEN TEST YES; BE 2.7 mmoll (-3.0-3.0); BLOOD TYPE ARTERIAL; HCO3-(ACT) 26.9 mmoll (20.0-26.0); O2(CT) 18.4 mL/dL (15.0-23.0); PCO2(98.6) 47 mmHg (35-45); PO2(98.6) 66 mmHg (60-100); SAMPLE BLOOD; SAO2 92.3 % (95.0-100.0); THB 14.2 g/dL (11.5-17.4); pH(98.6) 7.39 (7.35-7.45)
--- NOTE | 2018-10-22 11:49 | Diag Imaging Result Doc PS360 ---
EXAM: CHEST-PORTABLE 10/22/2018 HISTORY: ams TECHNIQUE: AP portable at 1115 COMMENT: There is ill-defined opacity in the left costophrenic angle which was not present on 12/17/2017. The heart size and primary vascularity have not changed. IMPRESSION: Minimal pneumonia left lower lobe. Electronically signed by Irving Diaz 10/22/2018 11:46 AM
[2018-10-22 11:53] LABS: AGAP 12; ALB/GLOB RATIO 1.2; ALBUMIN 3.6 g/dL (3.5-5.0); ALKALINE PHOSPHATASE 79 U/L (32-104); BUN 11 mg/dL (8-22); CALCIUM 9.6 mg/dL (8.8-10.2); CHLORIDE 103 mmol/L (98-107); COSMO 277; CREATININE 0.7 mg/dL (0.5-0.9); ESTIMATED GFR > 60; GLUCOSE 97 mg/dL (70-104); GOT 39 U/L (10-30); GPT 21 U/L (10-36); MAGNESIUM 1.8 mg/dL (1.5-2.7); POTASSIUM 4.9 mmol/L (3.5-5.1); SODIUM 139 mmol/L (136-145); TCO2 24 mmol/L (25-35); TOTAL PROTEIN 6.7 g/dL (6.3-8.3)
[2018-10-22 11:55] LABS: MODALITY ROOM AIR
[2018-10-22 12:43] LABS: FREE T4 1.57 ng/dL (0.93-1.70); TSH 2.03 uIUmL (0.27-4.20)
--- NOTE | 2018-10-22 12:52 | Diag Imaging Result Doc PS360 ---
EXAM: CT HEAD W/O CONTRAST 10/22/2018 HISTORY: ams TECHNIQUE: This exam was performed using automated exposure control, adjustment of mA or kV according to patient size, and/or use of iterative reconstruction technique. COMMENT: There is increased. Periventricular white matter lucency particularly in the frontal lobes. There is no evidence of mass effect, bleed, or abnormal extra-axial fluid collection. The calvarium is intact. The visualized paranasal sinuses are clear. Compared to 12/13/2017 there has been no significant change. IMPRESSION: Mild chronic microvascular white matter disease. No evidence of acute disease. Electronically signed by Irving Diaz 10/22/2018 12:49 PM
[2018-10-22] MEDS ORDERED: VANCOMYCIN 1 GM/NS 1 GM/250 ML IVPB IV ONE (13:47)
[2018-10-22] MEDS ORDERED: ZOSYN 3.375 GM in NS 50 ML IV ONE (13:47)
--- NOTE | 2018-10-22 13:50 | ED EKG INTERP ---
This chart was entered by Renate Snyder Scribe, acting as scribe for Leonid Perdomo MD. EKG Interpretation - EKG Time of EKG reading by physician:: 13:41 EKG Read and Signed by:: Leonid Perdomo EKG Interpretation (*Must complete 3 of following elements*): Abnormal Rate: 103 Rhythm: sinus tachy [place]: normal QRS: normal ST Wave: non-specific ST changes Attestation - Physician/ MARJORIE Attestation Patient care was provided by Advanced Practice Provider:: No The physician spent face to face time with patient:: Yes Advanced Practice Provider documentation review:: Supervising physician onsite and consulted in the evaluation and care of this patient. The physician did have a face to face encounter with the patient. This chart was documented by the indicated scribe, (Renate Snyder Scribe) and accurately reflects the services I performed and decisions made by Conor cook Kent A., MD, as attested by the provider's signature.
--- NOTE | 2018-10-22 13:50 | PROVIDER DOCUMENTATION ---
This chart was entered by Fior Peace Scribe, acting as scribe for Leonid Perdomo MD. HPI-Neurological Disorder - General Chief Complaint: Altered Mental Status Stated Complaint: ams Time Seen by Provider: 10/22/18 10:28 Source: patient Allergies/Adverse Reactions: Patient Allergies Allergy/AdvReac Type Severity Reaction Status Date / Time lithium Allergy Unknown Verified 12/13/17 13:50 Sulfa (Sulfonamide Allergy Unknown Verified 12/13/17 13:50 Antibiotics) Home Medications: Home Medication List Medication Instructions Recorded Confirmed Last Taken Type Acetaminophen [Tylenol] 650 mg PO Q6H PRN PRN 05/01/17 12/13/17 Unknown History Allopurinol 100 mg PO DAILY 05/01/17 12/13/17 05/01/17 History Amlodipine [Norvasc] 5 mg PO DAILY 05/01/17 12/13/17 Unknown History Aripiprazole [Abilify] 2 mg PO DAILY 05/01/17 12/13/17 05/01/17 History Bupropion [Wellbutrin] 200 mg PO BID 05/01/17 12/13/17 Unknown History Carboxymethylcellulose Sodium 1 drop OPH 4XDAY 05/01/17 12/13/17 Unknown History [Refresh Tears] Cholecalciferol (Vitamin D3) 2,000 unit PO DAILY 05/01/17 12/13/17 Unknown History [Vitamin D3] Cyanocobalamin (Vitamin B-12) 1,000 mcg IM DIRECTED 05/01/17 12/13/17 Unknown History [Cyanocobalamin Injection] Fluticasone 50 Mcg Nasal [place] 2 sprays INH DAILY 05/01/17 12/13/17 Unknown History [Flonase] Hydrocodone/Acetaminophen [[place] 1 tab PO DAILY 05/01/17 12/13/17 Unknown Histo ry 7.5-325 Tablet] Lisinopril 20 mg PO DAILY 05/01/17 12/13/17 Unknown History Lorazepam [Ativan] 1 mg PO Q6HR 05/01/17 12/13/17 05/01/17 History Magnesium Oxide [Magox 400] 400 mg PO DIRECTED 05/01/17 12/13/17 Unknown History Methocarbamol [Robaxin] 500 mg PO QHS 05/01/17 12/13/17 Unknown History Quetiapine Fumarate [Seroquel] 25 mg PO QHS 05/01/17 12/13/17 Unknown History Quetiapine [Seroquel] 100 mg PO QHS 05/01/17 12/13/17 Unknown History Multivit,Fe,Ca,FA & Min [Thera M 1 each PO DAILY #60 tablet 05/04/17 12/13/17 Unknown Rx Plus] Aspirin [Aspir-Low] 81 mg PO DAILY 12/13/17 12/13/17 Unknown History Calcium Carbonate [Calcium] 2 tab PO DAILY 12/13/17 12/13/17 Unknown History Levothyroxine [Synthroid] 50 microgm PO DAILY 12/13/17 12/13/17 Unknown History Mirtazapine [Remeron] 15 mg PO HS 12/13/17 12/13/17 Unknown History Omeprazole 1 cap PO BID 12/13/17 12/13/17 Unknown History Promethazine [Phenergan] 25 mg PO Q6H PRN PRN 12/13/17 12/13/17 Unknown History Trazodone [Desyrel] 50 mg PO QHS 12/13/17 12/13/17 Unknown History Levofloxacin [Levaquin] 500 mg PO DAILY #256 tablet 12/18/17 Unknown Rx - History of Present Illness-Neuro Nature of Presenting Problem: Patient is a 73 year old female who presents to the ED via EMS with stroke like symptoms. Patient states impaired speech and trouble walking. Patient states symptoms started last night but have improved this morning. Patient denies numbness and tingling. Patient denies fever and chills. Patient states having dizziness. Patient also notes cough for several days. Severity: reports: mild Onset/Duration: reports: last night Timing: reports: improving Context: reports: impaired speech, other (trouble walking) Character of Altered Mental Status: reports: confused Any recent trauma/injury?: reports: none Character of Deficits: reports: impaired speech, decreased ability to walk Gait Baseline: uses a walker Associated Symptoms: reports: dizziness Similar Symptoms Previously?: Yes (present last night) Recently seen or treated by another doctor?: No Review of Systems - Adult - REVIEW OF SYSTEMS - ADULT Constitutional: reports: no symptoms reported Eyes: reports: no symptoms reported Ears, Nose, Mouth & Throat: reports: no symptoms reported Cardiovascular: reports: no symptoms reported Respiratory: reports: cough. denies: shortness of breath, wheezing Gastrointestinal: reports: no symptoms reported Genitourinary: reports: no symptoms reported Musculoskeletal: reports: no symptoms reported Integumentary: reports: no symptoms reported Neurological: reports: dizziness/vertigo (dizziness), other (trouble walking and impaired speech). denies: headache/migraines, numbness, seizure, syncope Psychiatric: reports: no symptoms reported Endocrine: reports: no symptoms reported Hematologic/Lymphatic: reports: no symptoms reported Allergic/Immunologic: reports: no symptoms reported All Other Systems: Reviewed and Negative Past History - Adult - PAST MEDICAL HISTORY-ADULT Review of Records: reports: Nursing Assessment Review, Medications Reviewed, Social history reviewed & non-contributory. Major Childhood Illnesses: reports: denies history Cardiovascular: reports: HTN Respiratory: reports: asthma, COPD Gastrointestinal: reports: GERD Obstetrical/Gynecological: reports: denies history Genitourinary: reports: denies history Musculoskeletal: reports: denies history Neurological: reports: dementia Endocrine/Immune: reports: thyroid disorder Other Conditions: reports: denies history - PRIOR SURGERIES/PROCEDURES Surgical/Procedure History: reports: reviewed, not pertinent - IMMUNIZATION STATUS Childhood Immunizations: See Nurse Assessment Flu Vaccine: See Nurse Assessment - FAMILY HISTORY Family History: reviewed, not pertinent - SOCIAL HISTORY Smoking: denies Substance Use: denies Living Situation: care facility (SNF) Physical Exam- Neurological - Physical Exam-Neuro Initial Vital Signs Reviewed: Yes General Appearance: alert, no apparent distress Eye Exam: bilateral eye: normal inspection, PERRL, EOMI HENMT: other (dry mucous membranes) Head Injury: no evidence of injury Respiratory: chest non-tender, lungs clear, normal breath sounds Cardiovascular: normal peripheral pulses, tachycardia Abdominal Exam: normal bowel sounds, non tender, soft 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 RLE has effort against gravity but drops to bed.), other (dysarthria) Integumentary: normal color, normal turgor, warm/dry Psych/Mental Status: other (confused) Progress - PLAN OF CARE/RESULTS Progress/Plan/Lab Results: Vital Signs - 8 hr 10/22/18 10:29 10/22/18 10:36 10/22/18 10:38 Temperature 98.8 F Pulse Rate 106 H Respiratory Rate 18 Blood Pressure 121/81 121/81 O2 Sat by Pulse Oximetry 97 98 94 L 10/22/18 10:40 10/22/18 10:50 10/22/18 11:00 Temperature Pulse Rate Respiratory Rate Blood Pressure O2 Sat by Pulse Oximetry 94 L 95 93 L 10/22/18 11:10 10/22/18 11:20 10/22/18 11:30 Temperature Pulse Rate Respiratory Rate Blood Pressure O2 Sat by Pulse Oximetry 94 L 97 93 L 10/22/18 11:40 10/22/18 11:50 10/22/18 12:00 Temperature Pulse Rate Respiratory Rate Blood Pressure O2 Sat by Pulse Oximetry 96 94 L 94 L 10/22/18 12:10 10/22/18 12:20 10/22/18 12:50 Temperature Pulse Rate Respiratory Rate Blood Pressure O2 Sat by Pulse Oximetry 94 L 95 97 10/22/18 13:00 Temperature Pulse Rate Respiratory Rate Blood Pressure O2 Sat by Pulse Oximetry 95 10/22/18 10:55 Influenza Screen - Final Nasopharyngeal Laboratory Results - last 24 hr 10/22/18 10/22/18 10/22/18 10:55 10:55 10:55 WBC 8.17 RBC 4.75 Hgb 14.7 Hct 44.9 MCV 94.5 MCH 30.9 MCHC 32.7 L RDW Std Deviation 12.7 Plt Count 164 MPV 10.2 Immature Gran % (Auto) 0.4 Neut % (Auto) 60.1 Lymph % (Auto) 24.0 Coos % (Auto) 10.5 H Eos % (Auto) 4.4 Baso % (Auto) 0.6 Immature Gran # (Auto) 0.03 Neut # (Auto) 4.91 Lymph # (Auto) 1.96 Coos # (Auto) 0.86 H Eos # (Auto) 0.36 Baso # (Auto) 0.05 PT INR Specimen Type Sample Site pH pCO2 pO2 HCO3 Base Excess Oxyhemoglobin ABG O2 Sat (Calculated) ABG O2 Saturation ABG Carboxyhemoglobin ABG Methemoglobin Efrain Test A-a O2 Difference Total Hemoglobin Lactate Blood Gas Modality FiO2 % Sodium 139 Potassium 4.9 Chloride 103 Carbon Dioxide 24 L Anion Gap 12 BUN 11 Creatinine 0.7 Estimated GFR/1.73 m2 > 60 BUN/Creatinine Ratio 16 Glucose 97 POC Glucose Calculated Osmolality 277 Calcium 9.6 Magnesium 1.8 Total Bilirubin 0.70 AST 39 H ALT 21 Alkaline Phosphatase 79 Troponin T [id number]-[id number] Pept Total Protein 6.7 Albumin 3.6 Globulin 3.1 Albumin/Globulin Ratio 1.2 Plasma Lactate 1.0 TSH Free T4 Urine Source Urine Color Urine Turbidity Urine pH Ur Specific [place]raph[place] Urine Protein Ur Glucose (Stick) Ur Ketones (Stick) Urine Blood Urine Nitrite Urine Bilirubin Urobilinogen Dipstick Urine Leukocytes Urine WBC (Auto) Urine RBC (Auto) U Epithel Cells (Auto) Urine Bacteria (Auto) 10/22/18 10/22/18 10/22/18 10:55 10:55 10:55 WBC RBC Hgb Hct MCV MCH MCHC RDW Std Deviation Plt Count MPV Immature Gran % (Auto) Neut % (Auto) Lymph % (Auto) [place] % (Auto) Eos % (Auto) Baso % (Auto) Immature Gran # (Auto) Neut # (Auto) Lymph # (Auto) [place] # (Auto) Eos # (Auto) Baso # (Auto) PT 13.4 INR 0.95 Specimen Type Sample Site pH pCO2 pO2 HCO3 Base Excess Oxyhemoglobin ABG O2 Sat (Calculated) ABG O2 Saturation ABG Carboxyhemoglobin ABG Methemoglobin Efrain Test A-a O2 Difference Total Hemoglobin Lactate Blood Gas Modality FiO2 % Sodium Potassium Chloride Carbon Dioxide Anion Gap BUN Creatinine Estimated GFR/1.73 m2 BUN/Creatinine Ratio Glucose POC Glucose Calculated Osmolality Calcium Magnesium Total Bilirubin AST ALT Alkaline Phosphatase Troponin T < 0.010 Hka-Z-Bkjyeejcoug Pept 292 Total Protein Albumin Globulin Albumin/Globulin Ratio Plasma Lactate TSH Free T4 Urine Source Urine Color Urine Turbidity Urine pH Ur Specific [place] Urine Protein Ur Glucose (Stick) Ur Ketones (Stick) Urine Blood Urine Nitrite Urine Bilirubin Urobilinogen Dipstick Urine Leukocytes Urine WBC (Auto) Urine RBC (Auto) U Epithel Cells (Auto) Urine Bacteria (Auto) 10/22/18 10/22/18 10/22/18 10:55 11:20 11:25 WBC RBC Hgb Hct MCV MCH MCHC RDW Std Deviation Plt Count MPV Immature Gran % (Auto) Neut % (Auto) Lymph % (Auto) [place] % (Auto) Eos % (Auto) Baso % (Auto) Immature Gran # (Auto) Neut # (Auto) Lymph # (Auto) [place] # (Auto) Eos # (Auto) Baso # (Auto) PT INR Specimen Type Sample Site pH pCO2 pO2 HCO3 Base Excess Oxyhemoglobin ABG O2 Sat (Calculated) ABG O2 Saturation ABG Carboxyhemoglobin ABG Methemoglobin Efrain Test A-a O2 Difference Total Hemoglobin Lactate Blood Gas Modality FiO2 % Sodium Potassium Chloride Carbon Dioxide Anion Gap BUN Creatinine Estimated GFR/1.73 m2 BUN/Creatinine Ratio Glucose POC Glucose 112 H Calculated Osmolality Calcium Magnesium Total Bilirubin AST ALT Alkaline Phosphatase Troponin T Tev-S-Ejohpqmcbaa Pept Total Protein Albumin Globulin Albumin/Globulin Ratio Plasma Lactate TSH 2.03 Free T4 1.57 Urine Source CATH Urine Color YELLOW Urine Turbidity CLEAR Urine pH 7.0 Ur Specific [place] 1.006 Urine Protein NEGATIVE Ur Glucose (Stick) NEGATIVE Ur Ketones (Stick) NEGATIVE Urine Blood NEGATIVE Urine Nitrite NEGATIVE Urine Bilirubin NEGATIVE Urobilinogen Dipstick NORMAL Urine Leukocytes NEGATIVE Urine WBC (Auto) <10 Urine RBC (Auto) <10 U Epithel Cells (Auto) <10 Urine Bacteria (Auto) NEGATIVE 10/22/18 11:39 WBC RBC Hgb Hct MCV MCH MCHC RDW Std Deviation Plt Count MPV Immature Gran % (Auto) Neut % (Auto) Lymph % (Auto) [place] % (Auto) Eos % (Auto) Baso % (Auto) Immature Gran # (Auto) Neut # (Auto) Lymph # (Auto) [place] # (Auto) Eos # (Auto) Baso # (Auto) PT INR Specimen Type ARTERIAL Sample Site R RADIAL pH 7.39 pCO2 47 H pO2 66 HCO3 26.9 H Base Excess 2.7 Oxyhemoglobin 92.0 L ABG O2 Sat (Calculated) 18.4 ABG O2 Saturation 92.3 L ABG Carboxyhemoglobin 0.30 ABG Methemoglobin 0.0 Efrain Test YES A-a O2 Difference 25.0 Total Hemoglobin 14.2 Lactate 0.70 Blood Gas Modality ROOM AIR FiO2 % 21.0 Sodium Potassium Chloride Carbon Dioxide Anion Gap BUN Creatinine Estimated GFR/1.73 m2 BUN/Creatinine Ratio Glucose POC Glucose Calculated Osmolality Calcium Magnesium Total Bilirubin AST ALT Alkaline Phosphatase Troponin T Oky-G-Mtaowzbufpg Pept Total Protein Albumin Globulin Albumin/Globulin Ratio Plasma Lactate TSH Free T4 Urine Source Urine Color Urine Turbidity Urine pH Ur Specific [place] Urine Protein Ur Glucose (Stick) Ur Ketones (Stick) Urine Blood Urine Nitrite Urine Bilirubin Urobilinogen Dipstick Urine Leukocytes Urine WBC (Auto) Urine RBC (Auto) U Epithel Cells (Auto) Urine Bacteria (Auto) Orders Category Date Time Status Finger Stick Blood Sugar (ED) DIRECTED Care 10/22/18 10:36 Active Saline Loc NOW Care 10/22/18 10:36 Active Straight Catheterization ORDERED Care 10/22/18 10:36 Active CHEST-PORTABLE [RAD] Stat Exams 10/22/18 10:[address] HEAD W/O CONTRAST [CT] Stat Exams 10/22/18 10:37 Completed ABG [RESP] Routine Lab 10/22/18 11:39 Completed AMMONIA [CHEM] Stat Lab 10/22/18 11:04 Ordered BLOOD CULTURE [BLDCUL] Stat Lab 10/22/18 10:55 Results CBC WITH ELECTRONIC DIFF [HEME] Stat Lab 10/22/18 10:55 Completed COMPREHENSIVE METABOLIC PANEL [CHEM] Stat Lab 10/22/18 10:55 Completed FREE T4 Stat Lab 10/22/18 10:55 Completed INFLUENZA SCREEN A/B Stat Lab 10/22/18 10:55 Completed LACTATE, PLASMA [CHEM] Stat Lab 10/22/18 10:55 Completed MAGNESIUM [CHEM] Stat Lab 10/22/18 10:55 Completed PRO B-NATRIURETIC PEPTIDE Stat Lab 10/22/18 10:55 Completed PROTIME WITH INR [COAG] Stat Lab 10/22/18 10:55 Completed TROPONIN T Stat Lab 10/22/18 10:55 Completed TSH Stat Lab 10/22/18 10:55 Completed URINALYSIS W/POSS RFLX CULT [URINALYSIS] Stat Lab 10/22/18 11:25 Completed 0.9% Sodium Chloride Inj [Ns] 1,000 ml Med 10/22/18 10:38 Discontinued IV 999 mls/hr Piperacillin/Tazobactam [Zosyn] 3.375 gm Med 10/22/18 13:47 Active 0.9% Sodium Chloride Inj [Ns] 50 ml IV NOW Vancomycin 1 gm/Ns Med 10/22/18 13:47 Active 1 gm in 250 ml IV NOW EKG [EKG] Stat Ther 10/22/18 10:36 Ordered Result Diagrams: 10/22/18 10:55 10/22/18 10:55 - REASSESSMENT Reassessment #1 Time Reassessed: 13:57 Status: improving (with IVF and given vanc/zosyn for HCAP PNE. DOes not meet criteria for sepsis.) - XRAY 1 XRAY Study: Chest Impression: See EMR Report ( EXAM: CHEST-PORTABLE 10/22/2018 HISTORY: ams TECHNIQUE: AP portable at 1115 COMMENT: There is ill-defined opacity in the left costophrenic angle which was not present on 12/17/2017. The heart size and primary vascularity have not changed. IMPRESSION: Minimal pneumonia left lower lobe. Electronically signed by Irving Diaz 10/22/2018 11:46 AM 10/22/18 1146 Interpreting Physician: Irving Diaz MD Dictated Date/Time: 10/22/18 1144 cc: Leonid Perdomo MD; Mendez Brandon MD) - CT/MRI 1 CT Study: Head Impression: See EMR Report (EXAM: CT HEAD W/O CONTRAST 10/22/2018 HISTORY: ams TECHNIQUE: This exam was performed using automated exposure control, adjustment of mA or kV according to patient size, and/or use of iterative reconstruction technique. COMMENT: There is increased. Periventricular white matter lucency particularly in the frontal lobes. There is no evidence of mass effect, bleed, or abnormal extra-axial fluid collection. The calvarium is inta ct. The visualized paranasal sinuses are clear. Compared to 12/13/2017 there has been no significant change. IMPRESSION: Mild chronic microvascular white matter disease. No evidence of acute disease. Electronically signed by Irving Diaz 10/22/2018 12:49 PM 10/22/18 1249 Interpreting Physician: Irving Diaz MD Dictated Date/Time: 10/22/18 1248 cc: Leonid Perdomo MD; Mendez Brandon MD) - CONSULTS/PCP/HOSPITALIST Notification #1 *Consult/PCP/Hospitalist*: ALONDRA Sanon Time Discussed: 13:58 (admit to [facility]) Consult Disposition: Will see in ED Departure - Departure Date of Disposition Decision: 10/22/18 Time of Disposition Decision: 13:50 DIAGNOSIS: Acute CVA (cerebrovascular accident) Left lower lobe pneumonia Qualifiers: Pneumonia type: due to unspecified organism Qualified Code(s): J18.1 - Lobar pneumonia, unspecified organism Disposition: ADMITTED INPATIENT 09 Certified Medical Emergency: Emergent Condition: Fair Referrals and Follow-Ups: Mendez Brandon MD [Primary Care Provider] - - Critical Care Note This patient required my direct & personal management of CC.: Yes Total Time (mins): 45 Critical Care Statement: This patient required my direct personal management to treat or rule out processes, the absence of which, could potentiallly result in sudden, clinically significant life or limb threatening deterioration. Attestation - Physician/ MARJORIE Attestation Patient care was provided by Advanced Practice Provider:: No The physician spent face to face time with patient:: Yes Advanced Practice Provider documentation review:: Supervising physician onsite and consulted in the evaluation and care of this patient. The physician did have a face to face encounter with the patient. - NIH Stroke Scale NIH Type: Initial Evaluation Level of Consciousness: 0-Alert LOC Questions (ask month and age): 0-Answers Both Correctly LOC Commands (ask to open & close eyes;make a fist, let go): 0-Obeys Both Correctly Best Gaze (horizontal eye movement): 0-Normal Visual (use finger movement, counting or visual threat): 0-No Visual Loss Facial Palsy (show teeth or raise eyebrows & close eyes tght: 0-Symmetrical Movement Motor Function-left arm: 0-Normal Motor Function-right arm: 0-Normal Motor Function-left le-Drift Motor Function-right le-Some Effort Against Traphill Limb Ataxia(noztzj-nhdw-vxqihf, or heel to de luna): 0-No Ataxia Sensory(pin prick to face,arms,trunk,legs-compare side/side): 0-No Ataxia Best Language(name item/read sentence.Ex-Down to Earth): 1-Mild to Moderate Aphasia Dysarthria(Pt read words or say words Ex.Mama,Tip-Top,Thanks: 1-Mild-Mod Sl urring Words Extinction and Inattention: 0-Normal NIH Total Score: 5 Modified Clarisse Score Criteria: 1-no significant disability despite symptoms Stroke tPA Guidelines - Inclusion Criteria for IV tPA 18 years old or older: Yes Ischemic stroke with measurable deficit: Yes Onset <3 hours ago *OR* 3-4.5 hours ago: No - Exclusion Criteria for IV tPA Evidence of intracranial hemorrhage on CT: No Presentation suggest SAH: No CT reveals defined area of hypodensity: No Evidence of AVM, neoplasm, aneurysm: No Seizure at stroke onset: No Active internal bleeding or acute trauma: No Platelet Count Less Than 100,000: No Heparin Within Last 48 HRS (PTT >Lab normal limits): No INR > 1.7 (warfarin use): No Use IIB/IIIA inhibitors within 24 hours: No Serious Head Trauma Within Last 3 Months: No Arterial Puncture Within Last 7 Days: No Lumbar Puncture Within Last 7 Days: No Repeated systolic Blood Pressure >185 or Diastolic >110: No - Additional Exclusion Criteria for IV tPA Currently on Coumadin: No Patient older than 80: No Prior stroke and diabetes: No Baseline NIHSS score > 25: No - Relative Contraindications to IV tPA CT reveals extensive area of infarct (>1/3 MCA territory): No Minor or rapidly improving stroke symptoms: No Major Surgery or Serious Trauma In Previous 14 Days: No AMI within 3 months: No Gastrointestinal or Urinary Tract hemorrhage in Past 21 Days: No Post - AMI pericarditis: No Blood Glucose Less Than 50 mg/dl or Greater Than 400 mg/dl: No - Consultation Candidate for:: NOT A CANDIDATE (due to symptoms starting last night. patient is out of the time window.) This chart was documented by the indicated scribe, (Fior Peace Scribe) and accurately reflects the services I performed and decisions made by Conor cook Kent A., MD, as attested by the provider's signature.
--- NOTE | 2018-10-22 14:20 | EKG Report ---
Test Performed on : 10/22/2018 1:41:34 PM Test Reason : ams Blood Pressure : / mmHG Vent. Rate : 103 BPM Atrial Rate : 104 BPM P-R Int : 144 ms QRS Dur : 082 ms QT Int : 352 ms P-R-T Axes : 000 046 038 degrees QTc Int : 461 ms Sinus tachycardia. Otherwise normal ECG When compared with ECG of 16-DEC-2017 15:58, premature supraventricular complexes. are no longer present Vent. rate has decreased BY 53 BPM Unconfirmed Result
[2018-10-22] MEDS ORDERED: ZOFRAN IV PRN (14:39)
[2018-10-22] MEDS: NS 1,000 ML IV SCH (14:51)
--- NOTE | 2018-10-22 15:59 | HISTORY AND PHYSICAL ---
PRIMARY CARE PROVIDER: She states she does not have one. Is listed as Mendez Brandon MD. She is a resident in [facility]. CHIEF COMPLAINT: Confusion. Right-sided weakness. HISTORY OF PRESENT ILLNESS: Ms. Li Conway is a 73-year-old female with a medical history of dementia, bipolar, hypothyroidism, depression, anxiety, COPD, and GERD, who presents here with more confusion from [facility]. According to the patient, she has been having some hallucinations. She was trying to go to the restroom, fell, had to crawl to the bed. She got in the bed and she feels like she may have passed out but was unsure. It is reported that she came from [facility] with worsening confusion today. She also has complaints of sore throat, a dry cough, some chills and she does state that her strength is weaker on the right, which she feels like that is what added to her fall, and that it has only been going on for today. She was oriented x3. Speech seemed clear. Maybe some mild expressive aphasia, but I believe there is a questionable mild dementia history. So, will admit. Head CT is negative. Will do an MRI/MRA of the brain. She has had a recent echo this past year, so will get a carotid ultrasound, but otherwise will follow her and will also treat her for a left upper lobe pneumonia. That was found on chest x-ray. PAST MEDICAL HISTORY: 1. Mild dementia. 2. Bipolar. 3. Anxiety and depression. 4. Hypertension. 5. Hyperlipidemia. 6. Hypothyroidism. 7. Osteoarthritis. 8. COPD. 9. GERD. 10.Gout. 11.Stroke. PAST SURGICAL HISTORY: 1. ERCP. 2. Cholecystectomy. SOCIAL HISTORY: Smokes about one cigarette per day. She has 30-year history of smoking. Uses a walker to get around. The denies any alcohol or illicit drug use, but apparently she did have an alcohol abuse issue along with prescription drug abuse issue prior to her moving into [facility] and she has been at [facility] for a little over three years. Currently, no one is at the bedside with her. FAMILY HISTORY: Two brothers and her father all had a heart attack. ALLERGIES: [place] and sulfonamides. HOME MEDICATIONS: Have not been reconciled, will need to get an updated list and reevaluate prescription medications. REVIEW OF SYSTEMS: A 14-point review of systems were complete, and all were negative except for those mentioned in the above HPI. PHYSICAL EXAMINATION: VITAL SIGNS: Temperature 98.8, heart rate 106, respiratory rate 18, blood pressure 121/81, O2 saturation is 95% on room air. She is 5 feet 6 inches tall, 170 pounds, with a BMI of 27.4. GENERAL: Ms. Li Conway is a 73-year-old female. She is in no acute distress. She is able to answer most questions appropriately. HEENT: Atraumatic and normocephalic. Pupils are equal, round and reactive to light. Extraocular movements intact. Mucous membranes are dry. Speech is clear. NECK: Trachea midline. CARDIOVASCULAR: S1, S2. Regular rate and rhythm. No rubs, gallops or murmurs. No lower extremity edema. Plus 2 dorsalis and radial pulses. Negative JVD or carotid bruits. PULMONARY: Clear to auscultation, bilateral breath sounds. No accessory muscle use or work of breathing noted. GASTROINTESTINAL: Soft, nontender and nondistended. Positive bowel sounds x4. EXTREMITIES: Moves all extremities equally with full range of motion. NEUROLOGICAL: Alert and oriented x3. Follows commands. Sensory is intact. Slightly weaker on the right side with her extremities, but no sensory changes. She is symmetrical in her face. There is no slurred speech. SKIN: Warm, dry and intact. LABORATORY DATA: White blood cells 8,000, hemoglobin 14, hematocrit 44, platelet count 164,000. INR is 0.95. ABGs with pH of 7.39, pCO2 47, pO2 66, bicarb 26, base excess 2.7, saturation 92%. Lactate 0.7. This is on room air. Sodium 139, potassium 4.9, BUN 11, creatinine 0.7, glucose 97, calcium 9.6, magnesium 1.8, bilirubin 0.70, AST 39, ALT 21. Troponin is less than 0.01. proBNP 292. Albumin 3.6. Serum lactate 1.0. TSH 2.03. Free T4 is 1.57. Urinalysis is negative. IMAGING: Chest x-ray with minimal pneumonia in the left lower lobe. Head CT with mild chronic microvascular white matter disease. No acute process. EKG with sinus tachycardia, rate 103, QTC 461. ASSESSMENT AND PLAN: 1. Signs and symptoms of cerebrovascular accident with right-sided weakness and some intermittent confusion spells. She feels like she hallucinates from time to time. Head CT, initial, was negative. Will do an MRI/MRA of the brain to fully evaluate. She is trace weaker on the right, otherwise she is oriented, maybe some mild expressive aphasia but not too far off from baseline. 2. Bipolar history with anxiety and depression. Once home medications are verified will continue with that. 3. Left lower lobe pneumonia. Will continue with Zosyn. She has nonproductive cough. She does have chills. She is fever free. No white count elevation. So, will do Zosyn. Lactate is normal, so will just do some mild intravenous fluid hydration. 4. Chronic obstructive pulmonary disease. No exacerbation. 5. Reported mild dementia. 6. Hypothyroidism. Will continue Synthroid once the dosing is verified. 7. Hyperlipidemia. Continue statin once medications are verified. 8. Hypertension. Again, waiting for blood pressure medications to be verified. 9. Tobacco abuse. Cessation discussed. 10.Deep venous thrombosis prophylaxis. Sequential compression devices. Dictated by ALONDRA Roche for Tho Solis MD cc: ALONDRA Roche MD
[2018-10-22] MEDS: DUONEB (A & A) INH SCH ×2 (16:00→21:52)
[2018-10-22 17:14] LABS: BASO# 0.03 X1000 (0.0-0.2); BASO% 0.4 % (0.0-0.8); EOS# 0.23 X1000 (0.0-0.7); EOS% 3.3 % (0.0-10.0); HEMATOCRIT 44.9 % (37.0-47.0); HEMOGLOBIN 14.7 g/dL (12.0-16.0); LYMPH# 1.98 X1000 (1.2-3.4); LYMPH% 28.4 % (20.5-51.1); MCH 31.7 PG (27-31); MCHC 32.7 g/dL (33-37); MONO# 0.55 X1000 (0.11-0.59); MONO% 7.9 % (1.7-9.3); MPV 9.2 FL (7.4-10.4); NEUT# 4.19 X1000 (1.4-6.5); PLT 167 X1000 (130-400); RBC 4.63 XMIL (4.2-5.4); RDW 12.9 % (11.5-14.5); WBC 6.98 X1000 (4.8-10.8)
--- NOTE | 2018-10-22 17:18 | HISTORY AND PHYSICAL ---
HISTORY AND PHYSICAL ADDENDUM The patient seen and examined by me face to face. All the laboratory, vital signs, and images were reviewed. This patient has multiple past medical history, including dementia, possible bipolar disorder, anxiety, depression, hypertension, hyperlipidemia, COPD, gout, and apparently stroke. She has been smoking for 30 years; she is still smoking but just I believe 1 cigarette per day. She is living at [facility] for the past 3 years. PHYSICAL EXAMINATION: VITAL SIGNS: Stable. Temperature 98 degrees, pulse 104, respiratory rate 18, blood pressure 121/81, oxygen saturation 98 on room air. HEENT: Head normocephalic, no trauma. PERRLA. NECK: Supple. No JVD. Central trachea. CHEST: Clear to auscultation. Some crepitus at the bases, especially on the left side base. Possible mild rhonchi in that area as well. ABDOMEN: Soft, nontender, nondistended. No hepatosplenomegaly. EXTREMITIES: No edema, no clubbing, no cyanosis. NEUROLOGICAL: At the moment of my physical exam, this patient was completely alert. She was oriented x3. She is following commands. She was eating by herself. LABORATORIES: Benign with slight increase of pCO2 of 47, bicarbonate 26.9 on the ABGs. Blood sugar 112, AST 39. Urinalysis looks clean. Apparently, she came in with some signs of right-sided weakness. Again at the moment of my physical exam, she was completely fine. Her CT scan of the head is negative. We will get an MRI of the brain, just to make sure that she is not having a stroke. She has a history of dementia, bipolar, and anxiety/depression. For her left lower lobe pneumonia, we will continue with antibiotics. She has been placed on Zosyn. We will continue with a heart healthy diet. We will check the lipid panel, carotid ultrasound, and hopefully we will have all the results tomorrow, but at this time, she seems to be okay. As per the patient, she has been coughing, but no sputum production, and apparently she had fever yesterday, but she did not measure the temperature but she was hot. We will continue with the same management. She seems to be hydrated. She has been placed on a little bit of IV fluids. I agree with the rest of the nurse practitioner's assessment and plan. cc: Tho Solis MD
[2018-10-22 17:33] LABS: AGAP 10; ALB/GLOB RATIO 1.4; ALBUMIN 3.7 g/dL (3.5-5.0); ALKALINE PHOSPHATASE 77 U/L (32-104); BUN 9 mg/dL (8-22); CALCIUM 8.9 mg/dL (8.8-10.2); CHLORIDE 106 mmol/L (98-107); COSMO 280; CREATININE 0.7 mg/dL (0.5-0.9); ESTIMATED GFR > 60; GLUCOSE 105 mg/dL (70-104); GOT 31 U/L (10-30); GPT 21 U/L (10-36); POTASSIUM 4.2 mmol/L (3.5-5.1); SODIUM 141 mmol/L (136-145); TCO2 25 mmol/L (25-35); TOTAL BILIRUBIN 0.91 mg/dL (0.20-1.00); TOTAL PROTEIN 6.4 g/dL (6.3-8.3)
--- NOTE | 2018-10-22 18:27 | Diag Imaging Result Doc PS360 ---
EXAM: MRI BRAIN W/WO CONTRAST 10/22/2018 HISTORY: cva symptoms TECHNIQUE: T1, T2, FLAIR, and DWI axial, T1 sagittal and axial and post gadolinium-enhanced axial with coronal reformation, coronal gradient echo. COMMENT: There is no evidence of mass effect, bleed, or abnormal extra-axial fluid collection. There are some scattered patchy and punctate areas of increased T2-weighted signal intensity particularly near the insular cortex and centrum semiovale ovale on the left. There is no evidence of restricted diffusion. There is an anomalous vessel in the right cerebellar hemisphere which may be a venous angioma. Otherwise there is no evidence of abnormal gadolinium enhancement. No evidence of hemosiderin deposition is present. IMPRESSION: Chronic ischemic microvascular white matter changes. No evidence of acute ischemia. Incidentally noted right cerebellar venous angioma. Electronically signed by Irving Diaz 10/22/2018 6:25 PM
--- NOTE | 2018-10-22 18:30 | Diag Imaging Result Doc PS360 ---
EXAM: MRA BRAIN W/O CONTRAST 10/22/2018 HISTORY: cva symptoms TECHNIQUE: 3-D [id number] with 3-D MIPS COMMENT: There is no evidence of aneurysm, major branch occlusion, or other definite vascular abnormality. IMPRESSION: No definite abnormality. Electronically signed by Irving Diaz 10/22/2018 6:28 PM
[2018-10-22] MEDS: TYLENOL PO PRN (23:49)
[2018-10-23] MEDS: SEROQUEL PO SCH ×2 (00:02→21:21)
[2018-10-23] MEDS: ZOSYN 3.375 GM in NS 50 ML IV SCH ×5 (00:14→18:53)
[2018-10-23] MEDS: NS 1,000 ML IV SCH ×2 (04:44→15:42)
[2018-10-23] MEDS: TYLENOL PO PRN ×3 (04:55→16:03)
[2018-10-23 07:29] LABS: BASO# 0.02 X1000 (0.0-0.2); BASO% 0.4 % (0.0-0.8); EOS# 0.23 X1000 (0.0-0.7); EOS% 4.1 % (0.0-10.0); HEMOGLOBIN 13.9 g/dL (12.0-16.0); LYMPH# 1.55 X1000 (1.2-3.4); LYMPH% 27.3 % (20.5-51.1); MCH 31.7 PG (27-31); MCHC 33.1 g/dL (33-37); MCV 95.7 FL (81-99); MONO# 0.61 X1000 (0.11-0.59); MONO% 10.8 % (1.7-9.3); MPV 9.5 FL (7.4-10.4); NEUT# 3.26 X1000 (1.4-6.5); NEUT% 57.4 % (42.2-75.2); PLT 163 X1000 (130-400); RBC 4.39 XMIL (4.2-5.4); RDW 12.8 % (11.5-14.5); WBC 5.67 X1000 (4.8-10.8)
[2018-10-23 07:39] LABS: INR 0.96; PROTIME 13.6 Seconds (11.0-16.0)
[2018-10-23 07:47] LABS: AGAP 13; ALB/GLOB RATIO 1.3; ALBUMIN 3.5 g/dL (3.5-5.0); ALKALINE PHOSPHATASE 69 U/L (32-104); BUN 10 mg/dL (8-22); CALCIUM 8.5 mg/dL (8.8-10.2); CHLORIDE 99 mmol/L (98-107); COSMO 275; CREATININE 0.7 mg/dL (0.5-0.9); ESTIMATED GFR > 60; GLUCOSE 96 mg/dL (70-104); GOT 31 U/L (10-30); GPT 20 U/L (10-36); POTASSIUM 4.1 mmol/L (3.5-5.1); SODIUM 138 mmol/L (136-145); TCO2 26 mmol/L (25-35); TOTAL BILIRUBIN 0.89 mg/dL (0.20-1.00); TOTAL PROTEIN 6.3 g/dL (6.3-8.3)
[2018-10-23] MEDS: ASPIRIN PO SCH (09:06)
[2018-10-23] MEDS: DUONEB (A & A) INH SCH ×3 (10:24→21:25)
--- NOTE | 2018-10-23 11:18 | Carotid Study ---
DATE: 10/22/2018 PROCEDURE: Carotid duplex imaging. REFERRING PHYSICIAN: INTERPRETING PHYSICIAN: Dr. Allison TECH: Judy INDICATIONS: 1. Altered mental status. 2. CVA-like symptoms. EQUIPMENT: [employer]ify E9 ultrasound system with a 9LD transducer. OBSERVED DATA RIGHT LEFT Brachial Blood Pressure Carotid Pulse Bruits: Carotid/Sub DIAGRAM OF ULTRASOUND IMAGING R L RIGHT INT EXT INT EXT LEFT Artie (cm/s) Artie (cm/s) Subclavian 124/7 Subclavian 86/2 CCA Proximal 45/3 CCA Proximal 60/10 CCA Distal 41/7 CCA Distal 37/9 Bulb 30/8 Bulb 40/7 ICA Proximal 31/7 ICA Proximal 31/11 ICA Mid 45/9 ICA Mid 67/20 ICA Distal 48/15 ICA Distal 60/17 ECA 45/4 ECA 124/7 Vertebral 34/8 A Vertebral 37/7 A ICA/CCA Ratio 1.07 ICA/CCA Ratio 1.12 % Stenosis 0 to 39 % Stenosis 0 to 39 FINDINGS: Minimal atherosclerosis which at this time does not produce a hemodynamically significant flow limiting stenosis. Both vertebral arteries are antegrade flow. PHYSICIAN INTERPRETATION: By strict velocity criteria, no hemodynamically significant flow limiting stenosis noted. cc: MD Talita Angulo CRNP MTDD
[2018-10-23] MEDS ORDERED: VANCOMYCIN IV PER PHARMACY MISC SCH (13:00)
[2018-10-23] MEDS: MIRALAX PO SCH ×2 (14:29→21:21)
--- NOTE | 2018-10-23 15:56 | PROGRESS NOTE ---
DATE: 10/23/2018 SUBJECTIVE: Patient reports feeling pain all over because she usually takes [place] 3 to 4 tablets per day because she said that she is hurting all the time and also denies any extremity weakness. OBJECTIVE: Vital Signs: Temperature 98.1 degrees, heart rate 102, respiratory rate 19, blood pressure 166/89, O2 saturation 98% on room air. General Examination: This is a 73-year-old female, lying in bed, in no acute distress. HEENT: Head is normocephalic and atraumatic. Neck: No JVD noted. No carotid bruits. No lymphadenopathy. No thyromegaly. Cardiovascular: S1, S2 heard. No murmurs, gallops, or rubs. Regular rate and rhythm. Respiratory: Clear bilaterally to auscultation. No work of breathing or using accessory muscles. Abdomen: Soft, nontender to palpation. Bowel sounds present. No organomegaly. Extremities: No clubbing, cyanosis, or edema. Peripheral pulses present in both legs. Neurological: The patient is alert, oriented x3. Follows commands. Muscle strength 5/5 in 4 extremities. There is no slurred speech, and actually speech is coherent. LABORATORY DATA: CBC and BMP reviewed and all unremarkable. Lipid panel has been checked is okay. ASSESSMENT: 1. Transient ischemic attack (TIA). Patient when she came to the hospital had signs and symptoms of CVA. CT scan and MRI of the brain did not show any acute strokes. Actually, the patient evaluated but at admission did not show any signs of focality. At this point, we have ruled out that condition. 2. Bipolar history with anxiety and depression. The patient will be restarted on home medications. 3. Left lower lobe pneumonia. Patient is on Zosyn. We have been informed that 1 culture out of 2 is positive for gram-positive cocci. We will start vancomycin until final result of blood culture. Lactate was checked and otherwise normal. 4. Chronic obstructive pulmonary disease (COPD). Patient is not in any exacerbation. We will continue to monitor this patient. 5. Mild dementia. Aware. 6. Hypothyroidism. We will continue home dose of Synthroid. 7. Hyperlipidemia. We will continue with the statins. 8. Hypertension. Blood pressure is under control. We will continue with the same management. 9. Tobacco abuse. Patient has been advised strongly to stop smoking. DISPOSITION: At this point, we will continue with antibiotics, in this case vancomycin and Zosyn. We will wait for final result of blood culture to discharge this patient with oral medications. cc: Mauricio Macedo MD MTDD
[2018-10-23] MEDS: ATIVAN PO SCH (16:03)
[2018-10-23] MEDS: VANCOMYCIN 1,250 MG in NS 250 ML IV SCH (16:08)
[2018-10-23] MEDS: TEARISOL OPH SOLUTION OPH SCH (16:41)
[2018-10-23] MEDS: NORCO-7.5 PO PRN (16:43)
[2018-10-23] MEDS ORDERED: ROBAXIN PO SCH (21:00)
[2018-10-23] MEDS ORDERED: REMERON PO SCH (21:00)
[2018-10-23] MEDS: WELLBUTRIN PO SCH (21:44)
[2018-10-23] MEDS: PRILOSEC PO SCH (21:45)
[2018-10-24] MEDS: ATIVAN PO SCH ×4 (02:55→14:55)
[2018-10-24] MEDS: TEARISOL OPH SOLUTION OPH SCH ×3 (03:27→13:01)
[2018-10-24] MEDS: NS 1,000 ML IV SCH ×2 (06:03→08:36)
[2018-10-24] MEDS: ZOSYN 3.375 GM in NS 50 ML IV SCH ×3 (06:20→13:00)
[2018-10-24] MEDS: MIRALAX PO SCH (08:28)
[2018-10-24] MEDS: NORCO-7.5 PO PRN (08:28)
[2018-10-24] MEDS: PRILOSEC PO SCH (08:29)
[2018-10-24] MEDS: WELLBUTRIN PO SCH (08:29)
[2018-10-24] MEDS: ASPIRIN PO SCH (08:34)
[2018-10-24] MEDS ORDERED: SYNTHROID PO SCH (09:00)
[2018-10-24] MEDS ORDERED: NORVASC PO SCH (09:00)
[2018-10-24] MEDS ORDERED: VITAMIN D PO SCH (09:00)
[2018-10-24] MEDS ORDERED: ZYLOPRIM PO SCH (09:00)
[2018-10-24] MEDS ORDERED: FLONASE NAS SCH (09:00)
[2018-10-24] MEDS: DUONEB (A & A) INH SCH (11:30)
[2018-10-24 12:07] VITALS: BP 160/66
--- NOTE | 2018-10-24 12:33 | DISCHARGE SUMMARY ---
ADMISSION DATE: 10/22/2018 DISCHARGE DATE: 10/24/2018 CONSULTATIONS: None. PERTINENT PROCEDURES: 1. Head CT with mild chronic microvascular white matter disease. No evidence of acute disease. 2. Brain MRA. No definite abnormality. 3. Brain MRI. Chronic ischemic microvascular white matter changes. No evidence of acute ischemia. Incidentally noted right cerebellar venous angioma. 4. Carotid Doppler. There is no hemodynamically significant flow-limiting stenosis noted. DISCHARGE DIAGNOSES: 1. Transient ischemic attack. The patient came to the hospital with signs and symptoms of CVA. CT scan and MRI of the brain did not show any acute strokes. At the time of admission, the patient did not show any signs of focality. The CVA has been ruled out. 2. Bipolar history with anxiety and depression. Continue home medications. 3. Left lower lobe pneumonia. Patient was treated with IV Zosyn. One culture did grow out positive gram-positive cocci. She was initiated on vancomycin. Lactate was checked and it was normal. Blood cultures grew out to be a coag-negative staphylococcus. She is being discharged home on Augmentin. 4. Mild dementia aware. 5. Hypothyroidism. Continue Synthroid. 6. Hyperlipidemia. Continue statin. 7. Hypertension. Continue home medications. Blood pressure is controlled. 8. Tobacco abuse. Patient was strongly advised about smoking cessation as well as the means to quit. HOSPITAL COURSE: Briefly, Ms. Conway is a 73-year-old female with past medical history of dementia, bipolar, hypothyroidism, depression, anxiety, COPD, and GERD, who presented to the ED with confusion from [facility]. According to the patient, she had been having some hallucinations. She was trying to go the restroom, fell, and had to crawl to the bed. She got in the bed and it felt like she may have passed out, but unsure. It is reported that she came from [facility] for worsening confusion. She also had a complaint of a sore throat and a dry cough and some chills. She states that she felt her strength was weaker on the right and that is what added to her fall. She was oriented x3. Her speech was clear. She underwent imaging with a head CT, brain MRA, and brain MRI as well as carotid Doppler's. They all did not show any acute abnormalities. All of her focal deficits that she had complained on prior to admission had completely resolved. She was found to have a left lower lobe pneumonia with chest x-ray imaging. She was initiated on Zosyn. She had one blood culture that came back GPC's that was a contaminant. She was initially started on vancomycin. She has had a stable hospital course, and is clinically stable for discharge today back to [facility]. VITAL SIGNS: Temperature is 99.7 degrees, heart rate 102, respirations 16, blood pressure 155/87, and O2 is 95% on room air. DISCHARGE DIET: Healthy heart. DISCHARGE MEDICATIONS: 1. Desyrel 50 mg p.o. at bedtime. 2. Robaxin 500 mg p.o. at bedtime. 3. Seroquel 100 mg p.o. at bedtime. 4. Ativan 1 mg p.o. q.6 hours. 5. Abilify 10 mg p.o. daily. 6. Allopurinol 100 mg p.o. daily. 7. Low-dose aspirin 81 mg p.o. daily. 8. Calcium 2 tablets p.o. daily. 9. Vitamin B12 1000 mcg IM as directed. 10. Flonase 2 spray inhaled daily. 11. Lisinopril 20 mg p.o. daily. 12. Mag-Ox 400 mg p.o. as directed. 13. [place]ault 7.5/325 1 tab p.o. daily. 14. Norvasc 5 mg p.o. daily. 15. Prilosec 20 mg p.o. b.i.d. 16. Phenergan 25 mg p.o. q.6 hours p.r.n. 17. Refresh Tears 1 drop ophthalmic 4 times a day. 18. Remeron 15 mg p.o. at bedtime. 19. Synthroid 50 mcg p.o. daily. 20. Tylenol 650 mg p.o. q.6 hours p.r.n. 21. Vitamin D3 2000 units p.o. daily. 22. Wellbutrin 200 mg p.o. b.i.d. 23. Augmentin 875 p.o. q.12 hours x20 tablets. 24. Thera M +1 each p.o. daily. FOLLOWUP: Ms. Conway is being discharged back to [facility]. She is to continue to take all medications as prescribed. She is to take all antibiotics as prescribed. She can return to the ED or call 911 for any worsening of symptoms. Dictated by ALONDRA Majano for Mauricio Macedo MD Addendum: Patient seen and examined by myself. Agree with ALONDRA note. It reflects my assessment and plan. Patient is being discharged in stable condition back to her [place] [facility]. cc: MD Mendez Elmore MD [facility]
[2018-10-24] MEDS: VANCOMYCIN 1,250 MG in NS 250 ML IV SCH (14:55)
== END 2018-10-24 16:19 | DRG 69 ==
LOC: SUPCPDRO → ED 10:24 → 3N 16:30 → SUATTDRO 16:30
PROVIDERS: ATTEND Internal Medicine
CPT/HCPCS: 51701; 70450; 70544; 70553; 71010; 71045; 80053; 80061; 81001; 82140; 82805; 82948; 83605; 83721; 83735; 83880; 84439; 84443; 84484; 85025; 85610; 85730; 87040; 87275; 87276; 87804; 92523; 93005; 93880; 94640; 94761; 97162; 97530; 99285; A9270; A9579; J2405; J2543; J3370; J7030; J7050; P9612; XXXXX